=== PATIENT | male | born 1960 | race Caucasian/White ===

== ENCOUNTER 2016-12-21 19:21 | Inpatient (IN) | payer SELFPAY ==
--- NOTE | 2016-12-21 20:41 | ER Document Report ---
ED General - General Chief Complaint: Pain All Over Stated Complaint: STOMACH PAIN Time Seen by Provider: 12/21/16 20:31 Notes: Patient is a 56-year-old male comes emergency department for chief complaint of swelling in his abdomen and both of his legs, he states that it hurts all over, he states he tried to eat earlier but felt like it "was not going anywhere". He states that he gets short of breath intermittently. He denies chest pain specifically. He denies fever. He is on lisinopril, HCTZ, and Lasix 20 mg. He saw his primary care and they told him to come to emergency department today. Patient admits to former alcohol and tobacco abuse but states he has stopped both. He denies known history of liver failure. TRAVEL OUTSIDE OF THE [place] IN LAST 30 DAYS: No - Related Data Allergies/Adverse Reactions: No Known Allergies Allergy (Verified 12/21/16 19:49) Home Medications: Current Home Medications Furosemide [Lasix 40 mg Tablet] 40 mg PO 12/22/16 [History] Lisinopril/Hydrochlorothiazide [Lisinopril-Hctz 10-12.5 mg Tab] 1 each PO [History] Past Medical History - General Information source: Patient - Social History Smoking Status: Former Smoker Frequency of alcohol use: former heavy drinker Lives with: Family Family History: Reviewed & Not Pertinent - Past Medical History Cardiac Medical History: Reports: Hx Hypertension Renal/ Medical History: Denies: Hx Peritoneal Dialysis - Immunizations Hx Diphtheria, Pertussis, Tetanus Vaccination: Yes Review of Systems - Review of Systems Constitutional: No symptoms reported EENT: No symptoms reported Cardiovascular: See HPI Respiratory: No symptoms reported Gastrointestinal: See HPI Genitourinary: No symptoms reported Male Genitourinary: No symptoms reported Musculoskeletal: No symptoms reported Skin: No symptoms reported Hematologic/Lymphatic: No symptoms reported Neurological/Psychological: No symptoms reported Physical Exam - Vital signs Vitals: Temp Pulse Resp BP Pulse Ox 97.8 F 121 H 20 102/69 96 12/21/16 19:49 12/21/16 19:49 12/21/16 19:49 12/21/16 19:49 12/21/16 19:49 Interpretation: Normal - General General appearance: Other - patient slightly pale but not in distress In distress: None - HEENT Head: Normocephalic, Atraumatic Eyes: Normal Pupils: PERRL - Respiratory Respiratory status: No respiratory distress. No: Labored, Tachypnea Chest status: Nontender Breath sounds: Normal. No: Decreased air movement, Nonproductive cough, Wheezing Chest palpation: Normal - Cardiovascular Rhythm: Irregularly irregular, Tachycardia Murmur: No - Abdominal Distension: Distended Bowel sounds: Normal Tenderness: Tender - mild generalized tenderness - Back Back: Normal, Nontender. No: Tender - Extremities General upper extremity: Normal inspection, Nontender, Normal color, Normal ROM , Normal temperature General lower extremity: Edema - bilateral 2+ pitting edema; normal distal pulse and sensation - Neurological Neuro grossly intact: Yes Cognition: Normal Orientation: AAOx4 [place] Coma Scale Eye Opening: Spontaneous [place] Coma Scale Verbal: Oriented [place] Coma Scale Motor: Obeys Commands [place] Coma Scale Total: 15 Speech: Normal Cranial nerves: Normal Cerebellar coordination: Normal Motor strength normal: LUE, RUE, LLE, RLE Sensory: Normal - Psychological Associated symptoms: Normal affect, Normal mood - Skin Skin Temperature: Warm Skin Moisture: Dry Skin Color: Pale Course - Re-evaluation Re-evalutation: Patient is alert, he is not in distress, however he is slightly pale in appearance, he has obvious swelling of his abdomen and lower extremities suggestive of ascites. Tachycardic with irregular rate. EKG showing atrial fibrillation with rapid ventricular response at a rate of 145. Appears to have LBBB, no comparison old EKG. ST elevation anteriorly. Reviewed with Dr. Cason. Appears to be J-point elevation. Patient not complaining of chest pain. Workup pending. CBC is generally unremarkable. Chemistry shows mild hyponatremia, shows elevated BUN and elevated creatinine at 1.35. Cardiac enzymes unremarkable. LFTs are actually unremarkable. Patient has mild generalized abdominal tenderness but no severe tenderness suggesting spontaneous bacterial peritonitis. Suspect patient has liver failure with secondary ascites. Patient has history of alcohol abuse but denies drinking now, states he quit. Chest x-ray shows cardiomegaly, BNP is elevated, however there is no vascular congestion, there is no tachypnea, no rales on examination. Given Aspirin. Patient placed on Cardizem drip without bolus, this did work, heart rate averaging in the 100s now. Confirmed with Dr. Cason, he does not recommend a bolus of Cardizem. Patient states he actually feels a lot better now. Blood pressure borderline low and at times low, giving soft fluid resuscitation. Suspect he is intravascularly dry with elevated creatinine and BUN despite lower extremity edema and ascites. He states he is compliant with his Lasix. Ultrasound performed, shows ascites, enlarged liver, it does show gallbladder wall thickening but there is no pericholecystic fluid, stones, patient has no right upper quadrant pain on exam, chemistry not suggesting obstruction, no leukocytosis or fever. Patient denies that he has trouble eating or increased pain with eating. Examination does not suggest acute cholelithiasis. Discussed disposition with Dr. Cason again. Recommends admission to the hospitalist at this time. Discussed with Dr. Shelton, he states he will come and evaluate the patient, wants a repeat troponin and d-dimer performed. 12/22/16 D-dimer elevated, Dr. Shelton recommends evaluation for PE. CTA performed, shows no pulmonary embolism. Second troponin negative. Patient appeared to become cyanotic after lying down for a CAT scan, however he did not have labored breathing, hypoxia, or change in rhythm on monitoring. This resolved. Dr. Cason to bedside when this happened, recommends 500 cc bolus and 0.125 digoxin dose (now off cardizem due to low blood pressures). I did discuss with Dr. Shelton again, recommend ICU admission in the morning. Called and spoke with Dr. Johnson, patient to be admitted to the ICU. - Vital Signs Vital signs: Temp Pulse Resp BP Pulse Ox 97.8 F 121 H 21 H 102/90 H 96 12/21/16 19:49 12/21/16 19:49 12/22/16 07:01 12/22/16 07:00 12/22/16 07:01 - Laboratory Result Diagrams: 12/21/16 20:45 12/21/16 20:45 Laboratory results interpreted by me: 12/21/16 12/21/16 12/21/16 20:45 20:45 20:45 MCV 98 H RDW 15.6 H Plt Count 145 L PT D-Dimer Sodium 134.7 L Chloride 93 L BUN 41 H Creatinine 1.35 H Est GFR (Non-Af Amer) 55 L Magnesium Total Bilirubin 1.8 H Direct Bilirubin 0.8 H Creatine Kinase 44 L NT-Pro-B Natriuret Pep 45412 H TSH 12/21/16 12/21/16 12/21/16 20:45 20:45 20:45 MCV RDW Plt Count PT 15.7 H D-Dimer Sodium Chloride BUN Creatinine Est GFR (Non-Af Amer) Magnesium 2.5 H Total Bilirubin Direct Bilirubin Creatine Kinase NT-Pro-B Natriuret Pep TSH 4.88 H 12/22/16 01:55 MCV RDW Plt Count PT D-Dimer 1.74 H Sodium Chloride BUN Creatinine Est GFR (Non-Af Amer) Magnesium Total Bilirubin Direct Bilirubin Creatine Kinase NT-Pro-B Natriuret Pep TSH Critical Care Note - Critical Care Note Total time excluding time spent on procedures (mins): 50 - Hypotension, atrial fibrillation with rapid ventricular response Comments: Please allow 50 minutes of critical care time for treatment of patient with atrial fibrillation with rapid ventricular response, hypotension, multiple re- evaluations, treatment with Cardizem drip, IV fluids, digoxin. Consultation and admission to the ICU. Discharge - Discharge Clinical Impression: Atrial fibrillation with rapid ventricular response, Atrial fibrillation, new onset, History of alcohol abuse Ascites Qualifiers: Ascites type: other type Qualified Code(s): R18.8 - Other ascites Hypotension Qualifiers: Hypotension type: unspecified hypotension type Qualified Code(s): I95.9 - Hypotension, unspecified Condition: Serious Disposition: ADMITTED INPATIENT Admitting Provider: Hospitalist Unit Admitted: ICU Referrals: LIZBET HUFFMAN MD [Primary Care Provider] - Follow up as needed
[2016-12-21] MEDS ORDERED: DILTIAZEM HCL/D5W 125 MG/125 ML RTUINJ IV PRN (20:56)
[2016-12-21 21:05] LABS: ABSOLUTE BASOPHILS # (AUTO) 0.1 10^3/uL (0.0-0.2); ABSOLUTE EOSINOPHILS # (AUTO) 0.1 10^3/uL (0.0-0.6); ABSOLUTE LYMPHOCYTES (AUTO) 1.5 10^3/uL (0.5-4.7); ABSOLUTE MONOCYTES (AUTO) 0.7 10^3/uL (0.1-1.4); BASOPHILS % (AUTO) 0.9 % (0-2); EOSINOPHILS % (AUTO) 1.6 % (0-6); HEMATOCRIT 44.7 % (37.9-51.0); HEMOGLOBIN 14.7 g/dL (13.5-17.0); HGB HCT DIFFERENCE -0.6; LYMPHOCYTES % (AUTO) 20.8 % (13-45); MEAN CORPUSCULAR HEMOGLOBIN 32.3 pg (27.0-33.4); MEAN CORPUSCULAR HGB CONC 32.8 g/dL (32.0-36.0); MEAN CORPUSCULAR VOLUME 98 fl (80-97); MONOCYTES % (AUTO) 9.4 % (3-13); RED BLOOD COUNT 4.55 10^6/uL (4.35-5.55); RED CELL DISTRIBUTION WIDTH 15.6 % (11.5-14.0); SEGMENTED NEUTROPHILS % (AUTO) 67.3 % (42-78); WHITE BLOOD COUNT 7.4 10^3/uL (4.0-10.5)
[2016-12-21 21:08] LABS: ALANINE AMINOTRANSFERASE 53 U/L (21-72); ALBUMIN 3.7 g/dL (3.5-5.0); ALKALINE PHOSPHATASE 107 U/L (38-126); ANION GAP 14 (5-19); ASPARTATE AMINO TRANSFERASE 38 U/L (17-59); BILIRUBIN,DIRECT 0.8 mg/dL (0.0-0.4); BILIRUBIN,TOTAL 1.8 mg/dL (0.2-1.3); BLOOD UREA NITROGEN 41 mg/dL (7-20); CALCIUM 9.4 mg/dL (8.4-10.2); CARBON DIOXIDE 28 mmol/L (22-30); CHLORIDE 93 mmol/L (98-107); CREATINE KINASE 44 U/L (55-170); CREATININE RESULT 1.35 mg/dL (0.52-1.25); GLUCOSE 110 mg/dL (75-110); LIPASE 263.4 U/L (23-300); POTASSIUM 4.3 mmol/L (3.6-5.0); SODIUM 134.7 mmol/L (137-145); TOTAL PROTEIN 6.6 g/dL (6.3-8.2)
--- NOTE | 2016-12-21 21:09 | RADIOLOGY REPORT (SQ) ---
EXAM DESCRIPTION: CHEST SINGLE VIEW COMPLETED DATE/TIME: 12/21/2016 9:02 pm REASON FOR STUDY: shortness of breath COMPARISON: None. EXAM PARAMETERS: NUMBER OF VIEWS: One view. TECHNIQUE: Single frontal radiographic view of the chest acquired. RADIATION DOSE: NA LIMITATIONS: None. FINDINGS: LUNGS AND PLEURA: No opacities, masses or pneumothorax. No pleural effusion. MEDIASTINUM AND HILAR STRUCTURES: No masses. Contour normal. HEART AND VASCULAR STRUCTURES: Cardiomegaly. No failure. BONES: No acute findings. HARDWARE: None in the chest. OTHER: No other significant finding. IMPRESSION: Cardiomegaly. No other significant findings. TECHNICAL DOCUMENTATION: JOB ID: [id number]
[2016-12-21 21:19] LABS: PROTHROMBIN TIME 15.7 SEC (11.4-15.4)
[2016-12-21 21:20] LABS: CREATINE KINASE MB 0.41 ng/mL (<4.55); TROPONIN I 0.012 ng/mL
[2016-12-21] MEDS ORDERED: ASPIRIN 81 MG TABLET, CHEWABLE PO ONE (21:34)
[2016-12-21] MEDS ORDERED: NORMAL SALINE 1000 ML 500 ML IV ONE (21:36)
--- NOTE | 2016-12-22 00:10 | RADIOLOGY REPORT (SQ) ---
EXAM DESCRIPTION: U/S ABDOMEN COMPLETE W/O DOP COMPLETED DATE/TIME: 12/21/2016 11:52 pm REASON FOR STUDY: abd swelling and pain; eval liver and ascites COMPARISON: None. TECHNIQUE: Dynamic and static grayscale images acquired of the abdomen and recorded on PACS. Additio nal selected color Doppler and spectral images recorded. LIMITATIONS: Study limited due to acoustical interference from labored breathing, and fat or from ai r in the bowel. FINDINGS: PANCREAS: Poorly seen secondary to acoustical interference from fat or from air in the bow el. No visualized masses. Duct normal caliber as seen. LIVER: Enlarged measuring 22 cm in the right midclavicular line. Echotexture is within normal limits . LIVER VASCULATURE: Portal vein not able to be assessed due to labored breathing. GALLBLADDER: No stones. 7 mm wall thickness. ULTRASOUND-DETECTED KNUTSON'S SIGN: Negative. INTRAHEPATIC DUCTS AND COMMON DUCT: CBD and intrahepatic ducts normal caliber. No filling defects. INFERIOR VENA CAVA: Normal flow. AORTA: No aneurysm. RIGHT KIDNEY: Normal size. Normal echogenicity. No solid or suspicious masses. No hydronephrosis. No calcifications. LEFT KIDNEY: Normal size. Normal echogenicity. No solid or suspicious masses. No hydronephrosis. No calcifications. SPLEEN:Normal size. No solid masses. PERITONEAL AND PLEURAL SPACES: Moderate ascites is present in all 4 quadrants ascites. No pleural ef fusion identified. OTHER: No other significant finding. IMPRESSION: Hepatomegaly. Moderate ascites is present in all 4 quadrants ascites. Portal vein not able to be assessed due to labored breathing. Gallbladder wall thickening without intraluminal stones . TECHNICAL DOCUMENTATION: JOB ID: [id number] [employer]- All Rights Reserved
[2016-12-22] MEDS ORDERED: NORMAL SALINE 1000 ML 500 ML IV ONE ×2 (00:41→04:10)
[2016-12-22] MEDS ORDERED: NORMAL SALINE 1000 ML 1,000 ML IV ONE (02:52)
--- NOTE | 2016-12-22 03:40 | PDOC CONSULTATION ---
Consultation Consult Date: 12/22/16 Attending physician:: ALBERTO CONWAY Consult reason:: new onset atr fib; atr fib rvr; ascites History of Present Illness Admission Date/PCP: LIZBET HUFFMAN MD Patient complains of: abd/leg swelling, hurt all over History of Present Illness: ISAAC JOHNSON is a 56 year old male with history of alcohol abuse, averaging a case of beer per day, and a history of tobacco abuse, up to 2 packs a day, having stopped both approximately a month ago who presents to the emergency room for evaluation of above complaints. Patient has been discussed with emergency room nurse practitioner who evaluated the patient. Describes a 2 week history of slowly progressive abdominal and lower extremity swelling with hurting "all over." Early satiety. Intermittent shortness of breath. Occasional nausea and vomiting after eating, but not very often. No diarrhea or dysuria, chest pain, fever or chills. States he has never had leg or abdominal swelling before. Denies any known underlying biliary or cardiac disease, although he was started on lisinopril hydrochlorothiazide combination 1 month ago and started on Lasix 20 mg a day 1 week ago. Was seen in his primary care provider's office on the sixth, with above complaints, and was told to come to the emergency room for further evaluation and treatment. Was noted to be in atrial fibrillation with rapid ventricular response, pulse rate in the 140s upon arrival. Started on Cardizem drip, which is since been stopped. Right now in the 100 110+ range. Again, no chest pain. No history of atrial fibrillation, atrial flutter, or rapid irregular heartbeat. Basically negative personal history of cardiac disease other than the recently diagnosed hypertension. No previous [place] or congestive heart failure. No history of pulmonary embolus or DVT. No recent long trip with prolonged inactivity, or unusual lower extremity swelling or tenderness. No prior cardiac workup. Negative family history of coronary artery disease. Also noted to be intermittently hypotensive while in the emergency room, with systolic pressures down into the 70s at one point. Pressures have temporarily responded to IV fluids, with patient having received just under 1-1/2 L of crystalloid. However, when IV fluid is stopped, pressures creep down into the 80 systolic range. Dictation via voice recognition software. Laboratory results are listed in [employer] and are reviewed. X-ray summary results are listed below, with full report(s) reviewed. . EKG reviewed. No prior EKG available for comparison. Social history/personal habits: . Lives with girlfriend. Unemployed. One child. No illicit drug use. History of alcohol and tobacco use as noted above. No known drug allergies. Home medications initially autopopulated into [employer] may not accurately reflect patient's true medications, dosages, and/or frequencies. public health sanitarian technician to reconcile medications. Patient currently taking lisinopril hydrochlorothiazide combination 20/12.5 1 a day and Lasix 20 mg p.o. daily. Also on medication for hyperlipidemia; patient uncertain of this medication. REVIEW OF SYSTEMS: Constitutional: No fever or chills. Eyes: Wears reading glasses. ENT: No swallowing problems or complaints. Partial hearing loss. Pulmonary: See history and present illness. Cardiovascular: No current complaints, including chest pain. Gastrointestinal: See history and present illness. Skin: No current complaints, including rashes. Hematologic: Denies easy bruising. Neurologic: No current complaints, including numbness or tingling. Musculoskeletal: Joint pain from arthritis. Psychiatric: Denies anxiety or depression. Endocrine: No current complaints, including polyuria. Genitourinary: No current complaints, including dysuria. PHYSICAL EXAMINATION: 5 feet 5 inches tall. 94.4 kg. BMI 34.6 kg/m. Blood pressure 86/71; did increase to a systolic pressure 107 during IV fluid administration, but decreased back to the mid 80s systolic once the IV fluid was stopped. Pulse 106 and slightly irregular. 94% saturation on room air. Respirations are 21 and unlabored. Temperature 97.8. Slightly overweight somewhat disheveled chronically ill-appearing male who appears a bit older than his stated age. Pleasant awake alert and cooperative. Mildly anxious, without agitation. Skin is warm and dry. No grossly obvious evidence of rash in areas of skin examined. No subcutaneous nodules palpated. ENT: Hearing grossly normal to normal conversation. Tongue midline on protrusion pink and slightly tacky. Eyes: No scleral icterus. Pupils equal and reactive to light at 4 mm. [place] conjunctivae. Neck is supple and nontender to gentle active range of motion and palpation. Midline trachea. No palpable thyroid nodule mass enlargement or tenderness. Lymphatic: No palpable cervical or clavicular nodes. Neck and lymphatic exams limited by patient body habitus. Psychiatric: At best fair insight into acute and chronic medical issues. Oriented to time location and why here. Lungs: Auscultation reveals equal breath sounds bilaterally. No use of accessory respiratory muscles. Breath sounds are clear other than faint brief expiratory wheezing in the left base. Cardiovascular: Heart slightly irregular rate and rhythm, without gallop murmur or rub. No carotid or abdominal aortic bruits. Bilateral symmetric slightly pitting thigh, calf, ankle and pedal edema. Pitting component is most noticeable at ankles and dorsum of feet. Not sure I can palpate dorsalis pedis and posterior tibial pulses on either side due to edema, but toes are warm and dry with excellent capillary refill. Abdomen:soft rather protuberant with positive bowel sounds. Scant lower abdominal discomfort to palpation; certainly no evidence of guarding or peritoneal signs. Unable to adequately evaluate abdomen for masses or organomegaly due to distention. Extremities: Feet are warm and dry. No calf tenderness to compression. Gentle manipulation of lower extremities fails to reveal any obvious evidence of injury or instability to knees hips or ankles. Neurologic: Moves upper extremities grossly normally. Patellar reflexes absent. Absent Babinski. Light touch is intact at feet. Dorsiflexion and plantarflexion of feet 5 / 5 and symmetric. Past Medical History Cardiac Medical History: Reports: Hyperlipidema, Hypertension Denies: Atrial Fibrillation, Congestive Heart Failure, Coronary Artery Disease, DVT, Myocardial Infarction, Pulmonary Embolism Pulmonary Medical History: Denies: Asthma, Chronic Obstructive Pulmonary Disease (COPD), Sleep Apnea EENT Medical History: Reports: Eyes - Glasses, Ears - Partial hearing loss Denies: Throat Neurological Medical History: Denies: Hemorrhagic CVA, Ischemic CVA, Seizures Endocrine Medical History: Denies: Diabetes Mellitus Type 1, Diabetes Mellitus Type 2, Hyperthyroidism, Hypothyroidism Renal/ Medical History: Reports: None GI Medical History: Denies: Cirrhosis, Gastroesophageal Reflux Disease, Hepatitis, Peptic Ulcer Disease Musculoskeltal Medical History: Reports: Arthritis Skin Medical History: Reports: None Psychiatric Medical History: Reports: Other - History of alcohol and tobacco abuse; none for the past 1 month. Denies: Alcohol Dependency, Depression, General Anxiety Disorder, Substance Abuse, Tobacco Dependency Hematology: Reports: None Infectious Medical History: Denies: Hepatitis B, Hepatitis C Past Surgical History Past Surgical History: Reports: None Social History Information Source: Patient, Emergency Med Personnel, [facility] Records Lives with: Spouse/Significant other Smoking Status: Former Smoker - 2 packs a day at one time; none for the past month Frequency of Alcohol Use: None - History of heavy alcohol abuse; none for the past month Drugs: None - Advance Directive Resuscitation Status: Full Code Surrogate healthcare decision maker:: Girlfriend Family History Parental Family History Reviewed: Yes - Father of [place] at 86; uncertain mother's health Children Family History Reviewed: Yes - Healthy Sibling(s) Family History Reviewed.: Yes - Brother is diabetic Medication/Allergy Home Medications: Furosemide [Lasix 40 mg Tablet] 40 mg PO 12/22/16 Lisinopril/Hydrochlorothiazide [Lisinopril-Hctz 10-12.5 mg Tab] 1 each PO Allergies/Adverse Reactions: No Known Allergies Allergy (Verified 12/21/16 19:49) Physical Exam Vital Signs: Temp Pulse Resp BP Pulse Ox 97.8 F 121 H 17 100/85 95 12/21/16 19:49 12/21/16 19:49 12/22/16 02:12 12/22/16 02:02 12/22/16 02:02 Intake & Output 12/21/16 12/22/16 12/23/16 00:59 00:59 00:59 Weight 94.4 kg Results Laboratory Results: 12/21/16 20:45 12/21/16 20:45 12/21/16 12/21/16 12/21/16 20:45 20:45 20:45 WBC 7.4 RBC 4.55 Hgb 14.7 Hct 44.7 MCV 98 H MCH 32.3 MCHC 32.8 RDW 15.6 H Plt Count 145 L Seg Neutrophils % 67.3 Lymphocytes % 20.8 Monocytes % 9.4 Eosinophils % 1.6 Basophils % 0.9 Absolute Neutrophils 5.0 Absolute Lymphocytes 1.5 Absolute Monocytes 0.7 Absolute Eosinophils 0.1 Absolute Basophils 0.1 Sodium 134.7 L Potassium 4.3 Chloride 93 L Carbon Dioxide 28 Anion Gap 14 BUN 41 H Creatinine 1.35 H Est GFR ( Amer) > 60 Est GFR (Non-Af Amer) 55 L Glucose 110 Calcium 9.4 Magnesium 2.5 H Total Bilirubin 1.8 H AST 38 ALT 53 Alkaline Phosphatase 107 Total Protein 6.6 Albumin 3.7 Lipase 263.4 TSH 12/21/16 20:45 WBC RBC Hgb Hct MCV MCH MCHC RDW Plt Count Seg Neutrophils % Lymphocytes % Monocytes % Eosinophils % Basophils % Absolute Neutrophils Absolute Lymphocytes Absolute Monocytes Absolute Eosinophils Absolute Basophils Sodium Potassium Chloride Carbon Dioxide Anion Gap BUN Creatinine Est GFR ( Amer) Est GFR (Non-Af Amer) Glucose Calcium Magnesium Total Bilirubin AST ALT Alkaline Phosphatase Total Protein Albumin Lipase TSH 4.88 H 12/21/16 12/21/16 12/22/16 20:45 20:45 01:55 Creatine Kinase 44 L CK-MB (CK-2) 0.41 Troponin I 0.012 < 0.012 NT-Pro-B Natriuret Pep [id number] H Impressions: Chest X-Ray 12/21/16 20:38 IMPRESSION: Cardiomegaly. No other significant findings. Abdomen Ultrasound 12/21/16 21:54 IMPRESSION: Hepatomegaly. Moderate ascites is present in all 4 quadrants ascites. Portal vein not able to be assessed due to labored breathing. Gallbladder wall thickening without intraluminal stones. Assessment & Plan - Diagnosis (1) Renal insufficiency Is this a current diagnosis for this admission?: Yes Plan: Mild. Uncertain chronicity; no old labs available for comparison. (2) Thrombocytopenia Is this a current diagnosis for this admission?: Yes Plan: Mild. Likely secondary to liver disease from long-term alcohol abuse. (3) Hypotension Qualifiers: Hypotension type: unspecified hypotension type Qualified Code(s): I95.9 - Hypotension, unspecified Is this a current diagnosis for this admission?: Yes Plan: Possibly secondary to an element of intravascular depletion, despite peripheral edema. Ventricular rate acceptable at this point, with patient off Cardizem drip for approximately 45 minutes. Suggest further IV fluid at this point. May eventually need vasopressor; will leave to discretion of ER staff. This would necessitate ICU admission at our facility, and unfortunately, at this point in time, we have no ICU beds available. Consider transfer to facility with appropriate bed. Above discussed with emergency room nurse practitioner who originally evaluated the patient. (4) History of tobacco abuse Is this a current diagnosis for this admission?: Yes (5) History of alcohol abuse Is this a current diagnosis for this admission?: Yes (6) Peripheral edema Is this a current diagnosis for this admission?: Yes Plan: Likely secondary to underlying liver disease. (7) HTN (hypertension) Qualifiers: Hypertension type: essential hypertension Qualified Code(s): I10 - Essential (primary) hypertension Is this a current diagnosis for this admission?: Yes Plan: With low blood pressures, obviously recommend holding antihypertensives at this point in time. (8) Elevated LFTs Is this a current diagnosis for this admission?: Yes Plan: Likely secondary to underlying liver disease. (9) Ascites Qualifiers: Ascites type: other type Qualified Code(s): R18.8 - Other ascites Is this a current diagnosis for this admission?: Yes Plan: Likely secondary to underlying liver disease. Probably would benefit, at least symptomatically, from paracentesis. Not available at this time of day. Fluid could obviously be sent for further studies, including Gram stain, culture and sensitivity. No outward clinical evidence of spontaneous bacterial peritonitis at this point in time. (10) Atrial fibrillation, new onset Is this a current diagnosis for this admission?: Yes Plan: Elevated d-dimer. Plans by nurse practitioner are to proceed with CT angiogram of chest to rule out pulmonary embolus. Will eventually need cardiac workup, including echocardiogram. (11) Atrial fibrillation with rapid ventricular response Is this a current diagnosis for this admission?: Yes Plan: Acceptable ventricular rate off Cardizem drip. - Time Time Spent: 50 to 70 Minutes - Plan Summary Plan Summary: Thank you for asking us to see this unfortunate patient. Should vital signs stabilize, and/or intensive care unit bed become available at our facility, we would be happy to take patient on our service. Above discussed with initial evaluating emergency room nurse practitioner.
[2016-12-22] MEDS ORDERED: DIGOXIN INJ 0.5 MG/2 ML AMPULE IV ONE ×3 (04:09→22:00)
[2016-12-22] MEDS ORDERED: DIGOXIN INJ 0.5 MG/2 ML AMPULE ONE (04:14)
--- NOTE | 2016-12-22 04:20 | RADIOLOGY REPORT (SQ) ---
EXAM DESCRIPTION: CTA CHEST COMPLETED DATE/TIME: 12/22/2016 4:04 am REASON FOR STUDY: elevated D-Dimer(1.74) COMPARISON: Chest x-ray 12/21/2016. TECHNIQUE: CT scan of the chest performed using helical scanning technique with dynamic intravenous contrast injection. Images reviewed with lung, soft tissue and bone windows. Reconstructed coronal and sagittal MPR images reviewed. Additional 3 dimensional post-processing performed to develop Maximal Intensity Projection images (TX P). All images stored on PACS. All CT scanners at this facility use dose modulation, iterative reconstruction, and/or weight based d osing when appropriate to reduce radiation dose to as low as reasonably achievable (ALARA). [facility]: Dose Right [facility]: CareDose [facility]: Dose Right [facility]: Teradose 4D [facility]: j-Grab CONTRAST TYPE AND DOSE: contrast/concentration: Isovue 370.00 mg/ml; Total Contrast Delivered: 100.0 ml; Total Saline Delivered: 65.0 ml Contrast bolus optimized for the pulmonary arteries. Not diagnostic for the aorta. RENAL FUNCTION: Creatinine 1.35 RADIATION DOSE: Up-to-date CT equipment and radiation dose reduction techniques were employed. CTDIv ol: 18.6 mGy. DLP: 642 mGy-cm. . LIMITATIONS: Motion artifact. FINDINGS: LUNGS AND PLEURA: There is a small right-sided pleural effusion. Atelectatic changes at t he bilateral lung bases. No pneumothorax. There are mild emphysematous changes in the upper lobes. AORTA AND GREAT VESSELS: No thoracic aortic aneurysm. Contrast bolus not optimized for the aorta. HEART: The heart is enlarged. No pericardial effusion. Coronary arteries calcifications are noted. PULMONARY ARTERIES: No emboli visualized in the main pulmonary arteries or the segmental branches. HILAR AND MEDIASTINAL STRUCTURES: Right paratracheal lymph node measuring 13 mm in short axis. HARDWARE: None in the chest. UPPER ABDOMEN: There is a small amount of ascites in the visualized upper abdomen. There is reflux o f intravenous contrast into the IVC and the hepatic veins. BONES: Mild multilevel degenerative changes in the spine. 3D MIPS: Confirm above findings. IMPRESSION: No pulmonary emboli. Cardiomegaly. Reflux of intravenous contrast into the IVC and the hepatic veins, may be seen with ri ght heart failure. Small right pleural effusion. Bibasilar atelectasis. Mild mediastinal adenopathy. Mild emphysema. Small ascites. COMMENT: Quality ID # [id number]: Final reports with documentation of one or more dose reduction techniques (e.g., Automated exposure control, adjustment of the mA and/or kV according to patient size, use of iterative reconstruction technique) TECHNICAL DOCUMENTATION: JOB ID: [id number] [employer]- All Rights Reserved
--- NOTE | 2016-12-22 07:53 | EKG REPORT ---
SEVERITY:- ABNORMAL ECG - ATRIAL FIBRILLATION, V-RATE [id number] NONSPECIFIC INTRAVENTRICULAR CONDUCTION DELAY ANTERIOR INFARCT, AGE INDETERMINATE : Confirmed by: José Miguel Craig MD 22-Dec-2016 07:52:39
--- NOTE | 2016-12-22 07:53 | EKG REPORT ---
SEVERITY:- ABNORMAL ECG - ATRIAL FIBRILLATION NONSPECIFIC INTRAVENTRICULAR CONDUCTION DELAY ANTERIOR INFARCT, AGE INDETERMINATE : Confirmed by: José Miguel Craig MD 22-Dec-2016 07:52:28
[2016-12-22 08:41] LABS: ANION GAP 11 (5-19); BLOOD UREA NITROGEN 41 mg/dL (7-20); CALCIUM 9.1 mg/dL (8.4-10.2); CARBON DIOXIDE 24 mmol/L (22-30); CHLORIDE 98 mmol/L (98-107); CREATINE KINASE 41 U/L (55-170); CREATININE RESULT 1.25 mg/dL (0.52-1.25); GLUCOSE 91 mg/dL (75-110); POTASSIUM 4.9 mmol/L (3.6-5.0); SODIUM 133.3 mmol/L (137-145)
[2016-12-22 08:55] LABS: CREATINE KINASE MB 0.88 ng/mL (<4.55)
[2016-12-22 08:57] LABS: TROPONIN I < 0.012 ng/mL
--- NOTE | 2016-12-22 09:21 | ER Document Report ---
Doctor's Note Notes: 12/22/16 09:19 EKG obtained at 755 shows heart rate of 122 with atrial fibrillation and a prolonged QT time. QTC of 582. Repeat troponin and metabolic panel were ordered. Troponin continues to be negative. Metabolic panel is reasonable. Patient was seen last night with a consult by internal medicine with the plan to admit once an ICU bed was available. On reexamination at 855, the patient appeared well, felt comfortable. He said he was feeling better. His heart rate was 105. He was upright and wishing to go to the bathroom. No acute distress. I called earlier and spoke with Dr. Johnson. He has referred me to Dr. mcqueen. Dr. mcqueen and I have spoken and she will see the patient in the emergency department with the intention to admit him to the hospital. We agree that he likely does not need an ICU bed at this time, given his overall well appearance.
[2016-12-22] MEDS ORDERED: ONDANSETRON HCL INJ/PF 4 MG/2 ML SDV IV PRN ×2 (09:30→14:30)
[2016-12-22] MEDS ORDERED: METOPROLOL TARTRATE 25 MG TABLET PO SCH ×3 (10:00→18:00)
[2016-12-22] MEDS ORDERED: ALBUMIN HUMAN 50 ML IV SCH (12:00)
[2016-12-22] MEDS ORDERED: MIDODRINE HCL 5 MG TABLET PO SCH (14:00)
[2016-12-22] MEDS ORDERED: DILTIAZEM HCL INJ 25 MG/5 ML VIAL IV ONE (14:10)
[2016-12-22] MEDS: MIDODRINE HCL 5 MG TABLET PO SCH (17:30)
[2016-12-22] MEDS: ALBUMIN HUMAN 50 ML IV SCH ×4 (17:31→23:46)
[2016-12-22] MEDS ORDERED: METOPROLOL TARTRATE 25 MG TABLET PO ONE (19:30)
--- NOTE | 2016-12-22 20:43 | PDOC CONSULTATION ---
Consultation Consult Date: 12/22/16 Attending physician:: JESSE CHASE Consult reason:: Hypotension, atrial fibrillation History of Present Illness Admission Date/PCP: 12/22/16 09:30 LIZBET HUFFMAN MD Patient complains of: Leg edema. History of Present Illness: ISAAC JOHNSON is a 56 year old male with history of alcohol abuse, averaging a case of beer per day, and a history of tobacco abuse, up to 2 packs a day, having stopped both approximately a month ago who presents to the emergency room for evaluation of above complaints. Patient has been discussed with emergency room nurse practitioner who evaluated the patient. Describes a 2 week history of slowly progressive abdominal and lower extremity swelling with hurting "all over." Early satiety. Intermittent shortness of breath. Occasional nausea and vomiting after eating, but not very often. No diarrhea or dysuria, chest pain, fever or chills. States he has never had leg or abdominal swelling before. Denies any known underlying biliary or cardiac disease, although he was started on lisinopril hydrochlorothiazide combination 1 month ago and started on Lasix 20 mg a day 1 week ago. Was seen in his primary care provider's office on the sixth, with above complaints, and was told to come to the emergency room for further evaluation and treatment. Was noted to be in atrial fibrillation with rapid ventricular response, pulse rate in the 140s upon arrival. Started on Cardizem drip, which is since been stopped. Right now in the 100 110+ range. Again, no chest pain. Patient claims he has never been hospitalized. He denied ever having any heart problems. No history of atrial fibrillation, atrial flutter, or rapid irregular heartbeat. Basically negative personal history of cardiac disease other than the recently diagnosed hypertension. No previous DC or congestive heart failure. No history of pulmonary embolus or DVT. No recent long trip with prolonged inactivity, or unusual lower extremity swelling or tenderness. Also noted to be intermittently hypotensive while in the emergency room, with systolic pressures down into the 70s at one point. Pressures have temporarily responded to IV fluids, with patient having received just under 1-1/2 L of crystalloid. However, when IV fluid is stopped, pressures creep down into the 80 systolic range. Patient is a poor historian. This history was confirmed. Patient on repeated questioning denied any chest pain. He denied any prior history of atrial fibrillation, congestive heart failure etc. Past Medical History Cardiac Medical History: Reports: Hyperlipidema, Hypertension Denies: Atrial Fibrillation, Congestive Heart Failure, Coronary Artery Disease, DVT, Myocardial Infarction, Pulmonary Embolism Pulmonary Medical History: Denies: Asthma, Chronic Obstructive Pulmonary Disease (COPD) EENT Medical History: Reports: Eyes - Glasses, Ears - Partial hearing loss Denies: Throat Neurological Medical History: Denies: Hemorrhagic CVA, Ischemic CVA, Seizures Endocrine Medical History: Denies: Diabetes Mellitus Type 1, Diabetes Mellitus Type 2, Hyperthyroidism, Hypothyroidism Renal/ Medical History: Reports: None GI Medical History: Denies: Cirrhosis, Gastroesophageal Reflux Disease, Hepatitis, Peptic Ulcer Disease Musculoskeltal Medical History: Reports: Arthritis Skin Medical History: Reports: None Psychiatric Medical History: Reports: Other - History of alcohol and tobacco abuse; none for the past 1 month. Denies: Alcohol Dependency, Depression, General Anxiety Disorder, Substance Abuse, Tobacco Dependency Hematology: Reports: None Infectious Medical History: Denies: Hepatitis B, Hepatitis C Past Surgical History Past Surgical History: Reports: None Social History Information Source: Patient Lives with: Family Smoking Status: Former Smoker Frequency of Alcohol Use: Heavy Drugs: None Hx Prescription Drug Abuse: No - Advance Directive Resuscitation Status: Full Code Surrogate healthcare decision maker:: Patient's mother is the surrogate decision-maker Family History Family History: Reviewed & Not Pertinent Parental Family History Reviewed: Yes Children Family History Reviewed: Yes Sibling(s) Family History Reviewed.: Yes Medication/Allergy Home Medications: Furosemide [Lasix 20 mg Tablet] 20 mg PO QAM 12/22/16 Lisinopril/Hydrochlorothiazide [Lisinopril-Hctz 20-12.5 mg Tab] 1 tab PO DAILY 12/22/16 Allergies/Adverse Reactions: No Known Allergies Allergy (Verified 12/21/16 19:49) Review of Systems Review of Systems: Please see history of present illness and past medical history as wall. Constitutional: No fever or chills reported. Head : No recent chronic headaches, recent head injury. Eyes: No recent eye pain, diplopia, redness, discharge, acute visual changes. Ears: No recent chronic ear pain, acute hearing loss, ear discharge. Oral cavity: No recent ulcerations, bleeding, oral cavity discomfort. Neck: No recent acute neck pain reported. Hematologic: No recent easy bruising or bleeding or hematologic malignancy reported. Lymphatic: No recent lymphatic malignancy, chronic lymphadenopathy reported yet Cardiovascular system review: See history of present illness. Respiratory system review: No recent chronic cough, hemoptysis, blood clots in the lungs reported. Mild Shortness of breath on exertion Gastrointestinal system review: Negative for any recent acute or chronic abdominal pain, hematemesis, melena, recent change in bowel habits. Patient has noted some progressive abdominal distention. Genitourinary system review: No recent acute or chronic hematuria, flank pain, UTI etc. reported. Skin system review: Negative for any recent abnormal bruising, no rash, no pruritus reported. Neurologic: No prior history of strokes, mini strokes, seizure disorder. Psychologic: No history of major psychosis or major depression reported. Musculoskeletal: Minor aches and pains reported. No acute joint swelling reported. Endocrine: No recent polyuria, polydipsia, recent heat or cold intolerance. Physical Exam Vital Signs: Temp Pulse Resp BP Pulse Ox 97.4 F 110 H 20 80/54 L 99 12/22/16 16:35 12/22/16 19:10 12/22/16 16:35 12/22/16 19:10 12/22/16 16:35 Intake & Output 12/21/16 12/22/16 12/23/16 06:59 06:59 06:59 Intake Total 240 Balance 240 Exam: GENERAL: well-nourished and in no acute distress. Alert and oriented x3. He is however noted to be sitting upright in bed. HEAD: Atraumatic, normocephalic. EYES: Pupils equal round and reactive to light, extraocular movements intact, sclera anicteric, conjunctiva are normal. ENT: TMs normal, nares patent, oropharynx clear without exudates. Moist mucous membranes. No oral ulcerations or bleeding gums noted NECK: supple without lymphadenopathy. Trachea is central. No cervical or axillary lymphadenopathy noted. Carotids are 2+, JVD could not assess adequately but possibly significantly elevated and above angle of jaw. LUNGS: Respiration seems nonlabored, no significant accessory muscle action noted. Bibasilar fine crackles are noted. No significant dullness appreciated CHEST: Palpation of the chest wall shows no significant chest wall tenderness. No other significant abnormalities noted. HEART: [employer], No PSH, 1/6 TISH aortic area, 1/6 ga systolic murmur mitral area, no rubs, positive S3 gallops. ABDOMEN: Soft, no significant tenderness appreciated, normoactive bowel sounds. No guarding, no rebound. No rigidity noted . No masses appreciated. EXTREMITIES: Pedal pulses are 1-2+, no calf tenderness noted. No clubbing or cyanosis.2+ pedal edema noted NEUROLOGICAL: Focused neurological exam showed no significant neurologic deficit. Normal speech, no focal weakness appreciated. PSYCH: Normal mood, normal affect. Judgment and insight not checked but probably somewhat deranged. SKIN: No significant ecchymosis, rash, ulcerations or signs of pruritus noted. MUSCULOSKELETAL EXAM: No significant joint swelling noted. Results EKG Comments: Atrial fibrillation with rapid ventricular response. Left bundle branch block pattern noted. Impressions: Chest X-Ray 12/21/16 20:38 IMPRESSION: Cardiomegaly. No other significant findings. Abdomen Ultrasound 12/21/16 21:54 IMPRESSION: Hepatomegaly. Moderate ascites is present in all 4 quadrants ascites. Portal vein not able to be assessed due to labored breathing. Gallbladder wall thickening without intraluminal stones. Chest/Abdomen CTA 12/22/16 02:51 IMPRESSION: No pulmonary emboli. Cardiomegaly. Reflux of intravenous contrast into the IVC and the hepatic veins , may be seen with right heart failure. Small right pleural effusion. Bibasilar atelectasis. Mild mediastinal adenopathy. Mild emphysema. Small ascites. Assessment & Plan - Diagnosis (1) Congestive heart failure Qualifiers: Congestive heart failure type: combined Congestive heart failure chronicity : acute on chronic Qualified Code(s): I50.43 - Acute on chronic combined systolic (congestive) and diastolic (congestive) heart failure Is this a current diagnosis for this admission?: Yes (2) Coronary artery disease Qualifiers: Coronary Disease-Associated Artery/Lesion type: lummi artery Associated angina: angina presence unspecified Is this a current diagnosis for this admission?: Yes (3) Atrial fibrillation with rapid ventricular response Is this a current diagnosis for this admission?: Yes (4) Elevated LFTs Is this a current diagnosis for this admission?: Yes (5) HTN (hypertension) Qualifiers: Hypertension type: essential hypertension Qualified Code(s): I10 - Essential (primary) hypertension Is this a current diagnosis for this admission?: Yes (6) Hypotension Qualifiers: Hypotension type: unspecified hypotension type Qualified Code(s): I95.9 - Hypotension, unspecified Is this a current diagnosis for this admission?: Yes (7) Peripheral edema Is this a current diagnosis for this admission?: Yes (8) Renal insufficiency Is this a current diagnosis for this admission?: Yes (9) History of alcohol abuse Is this a current diagnosis for this admission?: Yes (10) Cardiomyopathy Qualifiers: Cardiomyopathy type: unspecified Qualified Code(s): I42.9 - Cardiomyopathy , unspecified Is this a current diagnosis for this admission?: Yes - Notes Notes: Patient noted to have severely reduced LVEF in addition has moderate to severe mitral regurgitation and also RV systolic dysfunction and failure. Picture consistent with biventricular cardiomyopathy. I feel that given his young age and current hypotension, best option would be to transfer to tertiary care as patient is likely to need LV pump support. This was discussed in detail with the patient back patient is declining transfer to tertiary care or even to the unit. At this point will digitalize patient as this is the only option left. Do not feel cardioversion likely to help at this time as it is chronic. If blood pressure support is needed, vasopressin may be the best option, as another agent is more likely to increase his heart rate response from atrial fibrillation. Overall prognosis is guarded. Discussed with hospitalist. Congestive heart failure: Patient seems to have severely depressed LVEF based on echocardiogram review. At this point blood pressure is low. CHF most likely related to underlying dilated cardiomyopathy but since patient has coronary calcification, patient could have had prior myocardial infarction. Will gradually optimized therapy as allowed by the blood pressure. Cardiomyopathy: 2D echocardiogram suggest biventricular cardiomyopathy, etiology not clear but probably idiopathic/alcoholic/ischemic. Coronary artery disease: This is present since patient has coronary calcification. Atrial fibrillation: Probably chronic based on left atrial enlargement. Patient also does not feel palpitations therefore difficult to assess how long has this been going on. Elevated LFT: Most likely related to CHF but cannot rule out alcoholic hepatitis. Hypertension: Patient however currently hypotensive. Peripheral edema: Possibly related to CHF but could well be risk partly from venous insufficiency, low albumin etc. Renal insufficiency: Most likely related to atherosclerotic disease. Could be related to low perfusion. History of alcohol abuse: Stable. Watch for any withdrawal. - Time Time Spent: 50 to 70 Minutes - CODE STATUS was discussed, patient remains full code. Surrogate decision-maker unchanged. Multiple medical problems were addressed. More than 50% of the time spent coordinating care, discussing management plans with involved caregivers. Management plans discussed with involved personnels. Medical decision making was of moderate to high complexity , patient's has multiple comorbidities. Medications reviewed and adjusted accordingly: Yes
[2016-12-22] MEDS: FUROSEMIDE INJ/PF 40 MG/4 ML SDV IV SCH (21:05)
[2016-12-22 21:19] LABS: ABSOLUTE BASOPHILS # (AUTO) 0.1 10^3/uL (0.0-0.2); ABSOLUTE EOSINOPHILS # (AUTO) 0.1 10^3/uL (0.0-0.6); ABSOLUTE LYMPHOCYTES (AUTO) 1.6 10^3/uL (0.5-4.7); ABSOLUTE MONOCYTES (AUTO) 0.6 10^3/uL (0.1-1.4); ABSOLUTE NEUT (AUTO) 5.2 10^3/uL (1.7-8.2); BASOPHILS % (AUTO) 1.1 % (0-2); EOSINOPHILS % (AUTO) 1.5 % (0-6); HEMATOCRIT 41.3 % (37.9-51.0); HEMOGLOBIN 13.8 g/dL (13.5-17.0); HGB HCT DIFFERENCE 0.1; LYMPHOCYTES % (AUTO) 20.6 % (13-45); MEAN CORPUSCULAR HEMOGLOBIN 32.8 pg (27.0-33.4); MEAN CORPUSCULAR HGB CONC 33.5 g/dL (32.0-36.0); MEAN CORPUSCULAR VOLUME 98 fl (80-97); MONOCYTES % (AUTO) 8.3 % (3-13); RED BLOOD COUNT 4.21 10^6/uL (4.35-5.55); RED CELL DISTRIBUTION WIDTH 15.3 % (11.5-14.0); SEGMENTED NEUTROPHILS % (AUTO) 68.5 % (42-78); WHITE BLOOD COUNT 7.6 10^3/uL (4.0-10.5)
[2016-12-22 21:41] LABS: ALANINE AMINOTRANSFERASE 41 U/L (21-72); ALBUMIN 3.7 g/dL (3.5-5.0); ALKALINE PHOSPHATASE 103 U/L (38-126); ANION GAP 15 (5-19); ASPARTATE AMINO TRANSFERASE 31 U/L (17-59); BILIRUBIN,TOTAL 2.1 mg/dL (0.2-1.3); BLOOD UREA NITROGEN 43 mg/dL (7-20); CALCIUM 8.9 mg/dL (8.4-10.2); CARBON DIOXIDE 20 mmol/L (22-30); CHLORIDE 96 mmol/L (98-107); CREATININE RESULT 1.23 mg/dL (0.52-1.25); GLUCOSE 107 mg/dL (75-110); MAGNESIUM 2.4 mg/dL (1.6-2.3); POTASSIUM 4.8 mmol/L (3.6-5.0); SODIUM 130.6 mmol/L (137-145); TOTAL PROTEIN 6.2 g/dL (6.3-8.2)
[2016-12-22 21:52] LABS: FREE T3 3.35 pg/mL (2.77-5.27)
[2016-12-22] MEDS ORDERED: FUROSEMIDE INJ/PF 40 MG/4 ML SDV IV SCH (22:00)
[2016-12-22] MEDS ORDERED: ALBUMIN HUMAN 50 ML IV ONE (23:46)
[2016-12-23] MEDS ORDERED: METOPROLOL TARTRATE 25 MG TABLET PO SCH
[2016-12-23] MEDS: METOPROLOL TARTRATE 25 MG TABLET PO SCH ×4 (00:50→18:10)
[2016-12-23] MEDS ORDERED: THIAMINE HCL 100 MG TABLET PO ONE (01:00)
[2016-12-23 04:56] LABS: ABSOLUTE BASOPHILS # (AUTO) 0.1 10^3/uL (0.0-0.2); ABSOLUTE EOSINOPHILS # (AUTO) 0.1 10^3/uL (0.0-0.6); ABSOLUTE LYMPHOCYTES (AUTO) 1.2 10^3/uL (0.5-4.7); ABSOLUTE MONOCYTES (AUTO) 0.6 10^3/uL (0.1-1.4); ABSOLUTE NEUT (AUTO) 5.1 10^3/uL (1.7-8.2); BASOPHILS % (AUTO) 1.2 % (0-2); EOSINOPHILS % (AUTO) 1.4 % (0-6); HEMATOCRIT 40.8 % (37.9-51.0); HEMOGLOBIN 13.6 g/dL (13.5-17.0); LYMPHOCYTES % (AUTO) 16.4 % (13-45); MEAN CORPUSCULAR HEMOGLOBIN 32.6 pg (27.0-33.4); MEAN CORPUSCULAR HGB CONC 33.2 g/dL (32.0-36.0); MEAN CORPUSCULAR VOLUME 98 fl (80-97); MONOCYTES % (AUTO) 8.6 % (3-13); RED BLOOD COUNT 4.16 10^6/uL (4.35-5.55); RED CELL DISTRIBUTION WIDTH 15.6 % (11.5-14.0); SEGMENTED NEUTROPHILS % (AUTO) 72.4 % (42-78); WHITE BLOOD COUNT 7.1 10^3/uL (4.0-10.5)
[2016-12-23 05:12] LABS: ALANINE AMINOTRANSFERASE 36 U/L (21-72); ALBUMIN 3.7 g/dL (3.5-5.0); ALKALINE PHOSPHATASE 105 U/L (38-126); ANION GAP 13 (5-19); ASPARTATE AMINO TRANSFERASE 32 U/L (17-59); BILIRUBIN,DIRECT 1.1 mg/dL (0.0-0.4); BILIRUBIN,TOTAL 2.5 mg/dL (0.2-1.3); BLOOD UREA NITROGEN 42 mg/dL (7-20); CALCIUM 9.3 mg/dL (8.4-10.2); CARBON DIOXIDE 21 mmol/L (22-30); CHLORIDE 98 mmol/L (98-107); CHOLESTEROL 97.96 mg/dL (0-200); CREATININE RESULT 1.09 mg/dL (0.52-1.25); Direct HDL 19 mg/dL (>40); GLUCOSE 93 mg/dL (75-110); MAGNESIUM 2.4 mg/dL (1.6-2.3); PHOSPHORUS 3.9 mg/dL (2.5-4.5); POTASSIUM 4.4 mmol/L (3.6-5.0); SODIUM 131.6 mmol/L (137-145); TOTAL PROTEIN 6.2 g/dL (6.3-8.2); TRIGLYCERIDES 81 mg/dL (<150)
[2016-12-23 05:23] LABS: DIRECT LDL 68 mg/dL (<100)
[2016-12-23] MEDS: MIDODRINE HCL 5 MG TABLET PO SCH ×3 (05:58→18:09)
[2016-12-23] MEDS: LANSOPRAZOLE 30 MG TAB.RAP.DR PO SCH (05:58)
[2016-12-23] MEDS ORDERED: FUROSEMIDE INJ/PF 40 MG/4 ML SDV IV SCH ×3 (10:00)
[2016-12-23] MEDS ORDERED: SPIRONOLACTONE 25 MG TABLET PO SCH (10:00)
[2016-12-23] MEDS: FOLIC ACID 1 MG TABLET PO SCH (11:03)
[2016-12-23] MEDS: RANOLAZINE 500 MG TAB.SR.12H PO SCH ×2 (11:03→21:40)
[2016-12-23] MEDS: MULTIVITAMIN TABLET PO SCH (11:05)
[2016-12-23] MEDS: DIGOXIN 0.125 MG TABLET PO SCH (11:07)
[2016-12-23] MEDS: THIAMINE HCL 100 MG TABLET PO SCH (11:08)
[2016-12-23] MEDS: SPIRONOLACTONE 25 MG TABLET PO SCH (11:12)
--- NOTE | 2016-12-23 11:17 | RADIOLOGY REPORT (SQ) ---
EXAM DESCRIPTION: U/S ABD PARACENTESIS COMPLETED DATE/TIME: 12/23/2016 10:13 am REASON FOR STUDY: ascities with abdominal distenstion and discomfort COMPARISON CT chest 12/22/2016 Abdominal ultrasound 12/21/2016 LIMITATIONS: None. PROCEDURE: After obtaining informed consent, the patient was brought to the ultrasound suite. The p rocedure was performed with the patient on a gurney. Ultrasound was used to identify a prominent poc ket of ascites in the right lower quadrant. An appropriate access site was selected. The patient wa s prepped and draped in usual sterile fashion. The access site was anesthetized with 4.5 mL 1% lido higinio. A Ihjo-X-Ndadhgib needle was advanced into the fluid. After aspiration of fluid the needle, the catheter was advanced off the needle into the fluid. A total of 1,600 mL of clear straw-colored fluid was removed. The patient tolerated the procedure well left the department in satisfactory condi tion. Samples of fluid were sent to the lab for testing. IMPRESSION: Successful ultrasound-guided diagnostic and therapeutic paracentesis COMMENT: Patient medication list reviewed: Yes- Quality ID# [id number]:Eligible professional attests to doc umenting in the medical record they obtained, updated, or reviewed the patient's current medications. Quality ID #[id number]: The patient was prepped and draped using maximum sterile barrier technique including cap, mask, sterile gown, sterile gloves, a large sterile sheet, hand hygiene, and 2% Chlorhexidine fo r cutaneous antisepsis. When ultrasound is used, sterile ultrasound techniques are followed requiring sterile gel and sterile probes. Quality ID #[id number]: Final reports for procedures using fluoroscopy that document radiation exposure chetna danya, or exposure time and number of fluorographic images (if radiation exposure indices are not avail able) TECHNICAL DOCUMENTATION: JOB ID: [id number] [employer]- All Rights Reserved
[2016-12-23 11:48] LABS: FLUID TYPE PERITONEAL
[2016-12-23 11:49] LABS: FLUID APPEARANCE SLIGHTLY HAZY; FLUID RBC AVERAGE 191.5; FLUID RBC DILUENT USED NONE USED; FLUID RBC DILUTION FACTOR 1; FLUID RBC SIDE 1 190; FLUID RBC SIDE 2 193; TOTAL RBC SQUARES COUNTED FLD 50
[2016-12-23] MEDS: FUROSEMIDE INJ/PF 40 MG/4 ML SDV IV SCH ×2 (13:14→19:36)
[2016-12-23] MEDS ORDERED: HYDRALAZINE HCL INJ/PF 20 MG/1 ML SDV IV PRN (19:19)
--- NOTE | 2016-12-23 19:19 | PDOC PROGRESS REPORT ---
Subjective Progress Note for:: 12/23/16 Subjective:: This is a follow-up visit for anasarca and underlying congestive heart failure. Had a long conversation with the patient who states that under no circumstances does he want to be transferred to a higher center for management of his disease. He states that he feels that we can treat him here and that if he really needs to go to [facility] that he will get in the car and drive himself. I was very specific with him and what I have learned is that the patient will only agree to be transferred to a higher center if he could no longer make decisions for himself and his respiratory status declined. Physical Exam Vital Signs: Temp Pulse Resp BP Pulse Ox 98.4 F 117 H 18 144/76 H 90 L 12/23/16 11:44 12/23/16 14:00 12/23/16 11:44 12/23/16 11:44 12/23/16 11:44 Intake & Output 12/22/16 12/23/16 12/24/16 06:59 06:59 06:59 Intake Total 640 175 Output Total 0 Balance 640 175 Weight 97.4 kg GENERAL: This is a well-developed well-nourished appearing white male resting On the side of his bed currently in no acute distress. HEART: Regular rate and rhythm. Positive murmur. No elevated JVD. Rubs or gallops. LUNGS: Clear to auscultation bilaterally with equal rise and fall of the chest. ABDOMEN: Soft, nontender,. Distended status post thoracentesis with normoactive bowel sounds EXTREMETIES: No clubbing, cyanosis. Anasarca is present extending all the way from the feet up into the abdomen. Peripheral pulses bilaterally are difficult to palpate. NEURO: Awake, alert and oriented 3. Cranial nerves II through XII are grossly intact. Results Laboratory Results: 12/23/16 04:30 12/23/16 04:30 12/22/16 12/22/16 12/22/16 20:43 20:43 20:43 WBC 7.6 RBC 4.21 L Hgb 13.8 Hct 41.3 MCV 98 H MCH 32.8 MCHC 33.5 RDW 15.3 H Plt Count 136 L Seg Neutrophils % 68.5 Lymphocytes % 20.6 Monocytes % 8.3 Eosinophils % 1.5 Basophils % 1.1 Absolute Neutrophils 5.2 Absolute Lymphocytes 1.6 Absolute Monocytes 0.6 Absolute Eosinophils 0.1 Absolute Basophils 0.1 Sodium 130.6 L Potassium 4.8 Chloride 96 L Carbon Dioxide 20 L Anion Gap 15 BUN 43 H Creatinine 1.23 Est GFR ( Amer) > 60 Est GFR (Non-Af Amer) > 60 Glucose 107 Calcium 8.9 Phosphorus Magnesium 2.4 H Total Bilirubin 2.1 H AST 31 ALT 41 Alkaline Phosphatase 103 Total Protein 6.2 L Albumin 3.7 Triglycerides Cholesterol LDL Cholesterol Direct VLDL Cholesterol HDL Cholesterol Free T4 1.39 Free T3 pg/mL 3.35 Fluid Type Fluid Source Fluid Color Fluid Appearance Fluid Viscosity Fluid WBC Fluid RBC 12/23/16 12/23/16 12/23/16 04:30 04:30 11:17 WBC 7.1 RBC 4.16 L Hgb 13.6 Hct 40.8 MCV 98 H MCH 32.6 MCHC 33.2 RDW 15.6 H Plt Count 124 L Seg Neutrophils % 72.4 Lymphocytes % 16.4 Monocytes % 8.6 Eosinophils % 1.4 Basophils % 1.2 Absolute Neutrophils 5.1 Absolute Lymphocytes 1.2 Absolute Monocytes 0.6 Absolute Eosinophils 0.1 Absolute Basophils 0.1 Sodium 131.6 L Potassium 4.4 Chloride 98 Carbon Dioxide 21 L Anion Gap 13 BUN 42 H Creatinine 1.09 Est GFR ( Amer) > 60 Est GFR (Non-Af Amer) > 60 Glucose 93 Calcium 9.3 Phosphorus 3.9 Magnesium 2.4 H Total Bilirubin 2.5 H AST 32 ALT 36 Alkaline Phosphatase 105 Total Protein 6.2 L Albumin 3.7 Triglycerides 81 Cholesterol 97.96 LDL Cholesterol Direct 68 VLDL Cholesterol 16.0 HDL Cholesterol 19 L Free T4 Free T3 pg/mL Fluid Type PERITONEAL Fluid Source ASCITES Fluid Color YELLOW Fluid Appearance SLIGHTLY HAZY Fluid Viscosity LIQUID Fluid WBC 233 Fluid RBC 957 12/22/16 20:43 Troponin I 0.020 Impressions: Chest X-Ray 12/21/16 20:38 IMPRESSION: Cardiomegaly. No other significant findings. Abdomen Ultrasound 12/21/16 21:54 IMPRESSION: Hepatomegaly. Moderate ascites is present in all 4 quadrants ascites. Portal vein not able to be assessed due to labored breathing. Gallbladder wall thickening without intraluminal stones. Chest/Abdomen CTA 12/22/16 02:51 IMPRESSION: No pulmonary emboli. Cardiomegaly. Reflux of intravenous contrast into the IVC and the hepatic veins , may be seen with right heart failure. Small right pleural effusion. Bibasilar atelectasis. Mild mediastinal adenopathy. Mild emphysema. Small ascites. Paracentesis Ultrasound 12/23/16 00:00 IMPRESSION: Successful ultrasound-guided diagnostic and therapeutic paracentesis Assessment & Plan - Diagnosis (1) Congestive heart failure Qualifiers: Congestive heart failure type: combined Congestive heart failure chronicity : acute on chronic Qualified Code(s): I50.43 - Acute on chronic combined systolic (congestive) and diastolic (congestive) heart failure Is this a current diagnosis for this admission?: Yes Plan: Continue aggressive diuresis. The patient is status post thoracentesis. The patient refuses transfer to a higher center for further treatment as per Dr. Ayala's recommendations. We will begin Entresto. The patient will need to follow-up as an outpatient after discharge. [facility] medical management and then discharge home. (2) Ascites Qualifiers: Ascites type: other type Qualified Code(s): R18.8 - Other ascites Is this a current diagnosis for this admission?: Yes Plan: Status post thoracentesis. The patient feels better from a respiratory standpoint and in terms of abdominal discomfort. (3) Atrial fibrillation with rapid ventricular response Is this a current diagnosis for this admission?: Yes Plan: Continue digoxin as well as rate control. (4) HTN (hypertension) Qualifiers: Hypertension type: essential hypertension Qualified Code(s): I10 - Essential (primary) hypertension Is this a current diagnosis for this admission?: Yes Plan: Continue current medications. (5) Hyponatremia Plan: This is a hypervolemic hyponatremia. At this point he seems to be stable and secondary to his underlying failure. The patient also has some abnormal liver function tests and has questionable underlying cirrhosis. Patient is not aware of a formal diagnosis of cirrhosis however. (6) Hypertensive urgency Plan: We will begin Coreg twice a day. Continue as needed medications. The patient' s diastolic pressures have been well above 100 at the bedside. Likely this is contributing to his underlying congestive heart failure. - Time Time Spent with patient: 25-34 minutes Anticipated discharge: Home Within: within 36 hours - Inpatient Certification Medical Necessity: Need Close Monitoring Due to Risk of Patient Decompensation
--- NOTE | 2016-12-23 20:41 | PDOC H&P ---
History of Present Illness Admission Date/PCP: 12/22/16 09:30 LIZBET HUFFMAN MD Patient complains of: Leg swelling, abdominal swelling and SOB History of Present Illness: ISAAC JOHNSON is a 56 year old male with history of alcohol abuse, averaging a case of beer per day, and a history of tobacco abuse, up to 2 packs a day, having stopped both approximately a month ago who presents to the emergency room for evaluation of above complaints. Patient was agitated at the time his was seen in the ED stating that he has been sitting here since yesterday evening. He reports 2 week history of slowly progressive abdominal and lower extremity swelling with hurting "all over." Early satiety. Intermittent shortness of breath. Occasional nausea and vomiting after eating, but not very often. De denies leg or abdominal swelling in the past. Patient states that he was started on lasix, lisinopril and HCTZ for hypertension. He states that the doctor who was managing him moved to [place]. He was evaluated by a new doctor who sent him for US of his stomach and was told that something may be wrong with his liver. He was instructed to go to the hospital. On presentation to the ED he was found to be in atrial fibrillation with rapid ventricular response, pulse rate in the 140s upon arrival. Started on Cardizem drip, which is since been stopped due to hypotension. Patient was given a bolus and digoxin the control the heart rate. Again, no chest pain. Patient is a poor historian. This history was confirmed. Patient on repeated questioning denied any chest pain. He denied any prior history of atrial fibrillation, congestive heart failure etc. Past Medical History Cardiac Medical History: Reports: Hyperlipidema, Hypertension Denies: Atrial Fibrillation, Congestive Heart Failure, Coronary Artery Disease, DVT, Myocardial Infarction, Pulmonary Embolism Pulmonary Medical History: Denies: Asthma, Chronic Obstructive Pulmonary Disease (COPD), Sleep Apnea EENT Medical History: Reports: Eyes - Glasses, Ears - Partial hearing loss Denies: Throat Neurological Medical History: Denies: Hemorrhagic CVA, Ischemic CVA, Seizures Endocrine Medical History: Denies: Diabetes Mellitus Type 1, Diabetes Mellitus Type 2, Hyperthyroidism, Hypothyroidism Renal/ Medical History: Reports: None GI Medical History: Denies: Cirrhosis, Gastroesophageal Reflux Disease, Hepatitis, Peptic Ulcer Disease Musculoskeltal Medical History: Reports: Arthritis Skin Medical History: Reports: None Psychiatric Medical History: Reports: Other - History of alcohol and tobacco abuse; none for the past 1 month. Denies: Alcohol Dependency, Depression, General Anxiety Disorder, Substance Abuse, Tobacco Dependency Hematology: Reports: None Infectious Medical History: Denies: Hepatitis B, Hepatitis C Past Surgical History Past Surgical History: Reports: None Social History Information Source: Patient Lives with: Family Smoking Status: Former Smoker Frequency of Alcohol Use: Heavy Drugs: None Hx Prescription Drug Abuse: No - Advance Directive Resuscitation Status: Full Code Family History Family History: Reviewed & Not Pertinent Parental Family History Reviewed: Yes Children Family History Reviewed: Yes Sibling(s) Family History Reviewed.: Yes Medication/Allergy Home Medications: Furosemide [Lasix 20 mg Tablet] 20 mg PO QAM 12/22/16 Lisinopril/Hydrochlorothiazide [Lisinopril-Hctz 20-12.5 mg Tab] 1 tab PO DAILY 12/22/16 Allergies/Adverse Reactions: No Known Allergies Allergy (Verified 12/21/16 19:49) Review of Systems Constitutional: PRESENT: fatigue, weight gain Eyes: ABSENT: visual disturbances Ears: ABSENT: hearing changes Nose, Mouth, and Throat: ABSENT: mouth pain Cardiovascular: PRESENT: edema. ABSENT: chest pain Respiratory: PRESENT: dyspnea Gastrointestinal: PRESENT: abdominal pain, bloating, dysphagia Genitourinary: ABSENT: difficulty urinating Musculoskeletal: ABSENT: deformity Integumentary: ABSENT: rash Neurological: ABSENT: focal weakness Psychiatric: ABSENT: depression Endocrine: ABSENT: cold intolerance Hematologic/Lymphatic: ABSENT: lymphadenopathy Allergic/Immunologic: ABSENT: seasonal rhinorrhea Physical Exam Vital Signs: Temp Pulse Resp BP Pulse Ox 98.4 F 50 L 18 144/76 H 90 L 12/23/16 11:44 12/23/16 11:44 12/23/16 11:44 12/23/16 11:44 12/23/16 11:44 Intake & Output 12/22/16 12/23/16 12/24/16 06:59 06:59 06:59 Intake Total 640 175 Output Total 0 Balance 640 175 Weight 97.4 kg General appearance: PRESENT: no acute distress, disheveled Head exam: PRESENT: normocephalic Eye exam: PRESENT: EOMI. ABSENT: scleral icterus Teeth exam: PRESENT: poor dentation Neck exam: PRESENT: full ROM. ABSENT: JVD Respiratory exam: PRESENT: decreased breath sounds, unlabored. ABSENT: tachypnea Cardiovascular exam: PRESENT: irregular rhythm GI/Abdominal exam: PRESENT: ascites, distended, firm, normal bowel sounds Rectal exam: PRESENT: deferred Extremities exam: PRESENT: full ROM, pedal edema Musculoskeletal exam: PRESENT: ambulatory Neurological exam: PRESENT: alert, awake, oriented to person, oriented to place , oriented to time, CN II-XII grossly intact Psychiatric exam: PRESENT: agitated Skin exam: PRESENT: dry, warm Results Laboratory Results: 12/23/16 04:30 12/23/16 04:30 12/22/16 12/22/16 12/22/16 20:43 20:43 20:43 WBC 7.6 RBC 4.21 L Hgb 13.8 Hct 41.3 MCV 98 H MCH 32.8 MCHC 33.5 RDW 15.3 H Plt Count 136 L Seg Neutrophils % 68.5 Lymphocytes % 20.6 Monocytes % 8.3 Eosinophils % 1.5 Basophils % 1.1 Absolute Neutrophils 5.2 Absolute Lymphocytes 1.6 Absolute Monocytes 0.6 Absolute Eosinophils 0.1 Absolute Basophils 0.1 Sodium 130.6 L Potassium 4.8 Chloride 96 L Carbon Dioxide 20 L Anion Gap 15 BUN 43 H Creatinine 1.23 Est GFR ( Amer) > 60 Est GFR (Non-Af Amer) > 60 Glucose 107 Calcium 8.9 Phosphorus Magnesium 2.4 H Total Bilirubin 2.1 H AST 31 ALT 41 Alkaline Phosphatase 103 Total Protein 6.2 L Albumin 3.7 Triglycerides Cholesterol LDL Cholesterol Direct VLDL Cholesterol HDL Cholesterol Free T4 1.39 Free T3 pg/mL 3.35 Fluid Type Fluid Source Fluid Color Fluid Appearance Fluid Viscosity Fluid WBC Fluid RBC 12/23/16 12/23/16 12/23/16 04:30 04:30 11:17 WBC 7.1 RBC 4.16 L Hgb 13.6 Hct 40.8 MCV 98 H MCH 32.6 MCHC 33.2 RDW 15.6 H Plt Count 124 L Seg Neutrophils % 72.4 Lymphocytes % 16.4 Monocytes % 8.6 Eosinophils % 1.4 Basophils % 1.2 Absolute Neutrophils 5.1 Absolute Lymphocytes 1.2 Absolute Monocytes 0.6 Absolute Eosinophils 0.1 Absolute Basophils 0.1 Sodium 131.6 L Potassium 4.4 Chloride 98 Carbon Dioxide 21 L Anion Gap 13 BUN 42 H Creatinine 1.09 Est GFR ( Amer) > 60 Est GFR (Non-Af Amer) > 60 Glucose 93 Calcium 9.3 Phosphorus 3.9 Magnesium 2.4 H Total Bilirubin 2.5 H AST 32 ALT 36 Alkaline Phosphatase 105 Total Protein 6.2 L Albumin 3.7 Triglycerides 81 Cholesterol 97.96 LDL Cholesterol Direct 68 VLDL Cholesterol 16.0 HDL Cholesterol 19 L Free T4 Free T3 pg/mL Fluid Type PERITONEAL Fluid Source ASCITES Fluid Color YELLOW Fluid Appearance SLIGHTLY HAZY Fluid Viscosity LIQUID Fluid WBC 233 Fluid RBC 957 12/22/16 20:43 Troponin I 0.020 Impressions: Chest X-Ray 12/21/16 20:38 IMPRESSION: Cardiomegaly. No other significant findings. Abdomen Ultrasound 12/21/16 21:54 IMPRESSION: Hepatomegaly. Moderate ascites is present in all 4 quadrants ascites. Portal vein not able to be assessed due to labored breathing. Gallbladder wall thickening without intraluminal stones. Chest/Abdomen CTA 12/22/16 02:51 IMPRESSION: No pulmonary emboli. Cardiomegaly. Reflux of intravenous contrast into the IVC and the hepatic veins , may be seen with right heart failure. Small right pleural effusion. Bibasilar atelectasis. Mild mediastinal adenopathy. Mild emphysema. Small ascites. Paracentesis Ultrasound 12/23/16 00:00 IMPRESSION: Successful ultrasound-guided diagnostic and therapeutic paracentesis Assessment & Plan - Diagnosis (1) Ascites Qualifiers: Ascites type: other type Qualified Code(s): R18.8 - Other ascites Is this a current diagnosis for this admission?: Yes Plan: Patient may have hepatic failure and heart failure resulting from years of drinking resulting in ascities. Patient is distended and is having difficulty breathing and discomfort. Will give albumin and midodrine to increase patients blood pressure in preparation for therapeutic and diagnostic paracentesis. (2) Atrial fibrillation with rapid ventricular response Is this a current diagnosis for this admission?: Yes Plan: Patient did not tolerate cardizem as he became more hypotensive. Patient as given digoxin and metoprolol. Cardiology consulted and recommend digoxin 0.25 Q4 until 2mg total. Will make sure potassium in kept at 4 and magnesium at 2. (3) Congestive heart failure Qualifiers: Congestive heart failure type: combined Congestive heart failure chronicity : acute on chronic Qualified Code(s): I50.43 - Acute on chronic combined systolic (congestive) and diastolic (congestive) heart failure Is this a current diagnosis for this admission?: Yes Plan: Concerned that patient may have dilated cardiomyopathy due to his excessive drinking history. Cardiac echo ordered and cardiology consulted. Patient is unable to tolerate beta alicja and ACEI at this time due to hypotension. (4) Hypotension Qualifiers: Hypotension type: unspecified hypotension type Qualified Code(s): I95.9 - Hypotension, unspecified Is this a current diagnosis for this admission?: Yes Plan: This could be due to his hepatic failure, heart failure and atrial fibrilation. Patient being given albumin and midodrine to help with the hypotension. Digoxin should correct the arrhythmia and improve cardiac out put. Will not given fluids as patient has anasarca, ascites and SOB and actually needs to be diuresed. (5) Peripheral edema Is this a current diagnosis for this admission?: Yes Plan: Due to hepatic failure and or CHF. Will attempt to increase blood pressure with albumin and midodrine and diurese with lasix and aldactone. (6) Renal insufficiency Is this a current diagnosis for this admission?: Yes (7) Thrombocytopenia Is this a current diagnosis for this admission?: Yes Plan: Due to liver failure. Will avoid low molecular weight heparin and monitor for signs of bleeding. (8) History of alcohol abuse Is this a current diagnosis for this admission?: Yes Plan: Patient states he quit a month ago. (9) History of tobacco abuse Is this a current diagnosis for this admission?: Yes Plan: Patient counseled on cessation. - Time Time Spent: 30 to 50 Minutes Critical Time spent with patient: Less than 15 minutes Smoking Cessation Education: 3 to 10 minutes Medications reviewed and adjusted accordingly: Yes Anticipated discharge: Home - Patient is very sick and transfer to higher level of care recommended by cardiology however patient refusing. - Inpatient Certification Medical Necessity: Need Close Monitoring Due to Risk of Patient Decompensation - Patient with what appears to be cardiac and liver failure. In addition to tachyarrhythmia. He requires hospitalization and stablization and possible transfer to [facility].
[2016-12-23] MEDS: METOPROLOL SUCCINATE 25 MG TAB.SR.24H PO SCH (21:40)
[2016-12-23] MEDS ORDERED: CARVEDILOL 6.25 MG TABLET PO SCH (22:00)
[2016-12-24] MEDS: LANSOPRAZOLE 30 MG TAB.RAP.DR PO SCH (06:00)
[2016-12-24] MEDS: MIDODRINE HCL 5 MG TABLET PO SCH ×3 (06:00→17:24)
[2016-12-24 06:01] LABS: ABSOLUTE EOSINOPHILS # (AUTO) 0.2 10^3/uL (0.0-0.6); ABSOLUTE LYMPHOCYTES (AUTO) 1.5 10^3/uL (0.5-4.7); ABSOLUTE MONOCYTES (AUTO) 0.7 10^3/uL (0.1-1.4); ABSOLUTE NEUT (AUTO) 4.8 10^3/uL (1.7-8.2); BASOPHILS % (AUTO) 0.7 % (0-2); EOSINOPHILS % (AUTO) 2.2 % (0-6); HEMATOCRIT 41.1 % (37.9-51.0); HEMOGLOBIN 13.4 g/dL (13.5-17.0); HGB HCT DIFFERENCE -0.9; LYMPHOCYTES % (AUTO) 20.4 % (13-45); MEAN CORPUSCULAR HEMOGLOBIN 32.2 pg (27.0-33.4); MEAN CORPUSCULAR HGB CONC 32.7 g/dL (32.0-36.0); MEAN CORPUSCULAR VOLUME 99 fl (80-97); MONOCYTES % (AUTO) 9.4 % (3-13); RED BLOOD COUNT 4.17 10^6/uL (4.35-5.55); RED CELL DISTRIBUTION WIDTH 15.2 % (11.5-14.0); SEGMENTED NEUTROPHILS % (AUTO) 67.3 % (42-78); WHITE BLOOD COUNT 7.1 10^3/uL (4.0-10.5)
[2016-12-24 06:17] LABS: ANION GAP 12 (5-19); BLOOD UREA NITROGEN 43 mg/dL (7-20); CALCIUM 9.2 mg/dL (8.4-10.2); CARBON DIOXIDE 25 mmol/L (22-30); CHLORIDE 95 mmol/L (98-107); CREATININE RESULT 1.25 mg/dL (0.52-1.25); GLUCOSE 85 mg/dL (75-110); MAGNESIUM 2.2 mg/dL (1.6-2.3); POTASSIUM 4.2 mmol/L (3.6-5.0); SODIUM 131.6 mmol/L (137-145)
[2016-12-24] MEDS: FUROSEMIDE INJ/PF 40 MG/4 ML SDV IV SCH ×2 (10:12→17:22)
[2016-12-24] MEDS: RANOLAZINE 500 MG TAB.SR.12H PO SCH ×2 (10:14→21:42)
[2016-12-24] MEDS: THIAMINE HCL 100 MG TABLET PO SCH (10:14)
[2016-12-24] MEDS: DIGOXIN 0.125 MG TABLET PO SCH (10:14)
[2016-12-24] MEDS: MULTIVITAMIN TABLET PO SCH (10:15)
[2016-12-24] MEDS: FOLIC ACID 1 MG TABLET PO SCH (10:15)
--- NOTE | 2016-12-24 11:29 | PDOC PROGRESS REPORT ---
Subjective Progress Note for:: 12/23/16 Subjective:: Feels better, had paracentesis. Patient remains in atrial fibrillation. Is still in considerable CHF. Heart rate still somewhat high. Patient was given multiple doses of IV digoxin. Today I am going to start him on Ranexa. This will help with heart rate control and may also help with diastolic dysfunction. Patient claims to be feeling better after paracentesis. Patient continues to decline any transfer to tertiary care for further evaluation and assessment. Physical Exam Vital Signs: Temp Pulse Resp BP Pulse Ox 98.3 F 78 19 108/79 97 12/23/16 19:36 12/23/16 19:36 12/23/16 19:36 12/23/16 19:36 12/23/16 19:36 Intake & Output 12/22/16 12/23/16 12/24/16 06:59 06:59 06:59 Intake Total 640 525 Output Total 0 600 Balance 640 -75 Weight 97.4 kg Exam: GENERAL: well-nourished and in no acute distress. Alert and oriented x3 HEAD: Atraumatic, normocephalic. EYES: Pupils equal round and reactive to light, extraocular movements intact, sclera anicteric, conjunctiva are normal. ENT: TMs normal, nares patent, oropharynx clear without exudates. Moist mucous membranes. No oral ulcerations or bleeding gums noted NECK: supple without lymphadenopathy. Trachea is central. No cervical or axillary lymphadenopathy noted. Carotids are 2+, JVD 14 cm LUNGS: Respiration seems nonlabored, no significant accessory muscle action noted. Bibasilar fine crackles and minimal dullness noted both bases. CHEST: Palpation of the chest wall shows no significant chest wall tenderness. No other significant abnormalities noted. 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 ABDOMEN: Soft, no significant tenderness appreciated, normoactive bowel sounds. No guarding, no rebound. No rigidity noted . No masses appreciated. EXTREMITIES: Pedal pulses are 1-2+, no calf tenderness noted. No clubbing or cyanosis. 1-2 + pedal edema noted NEUROLOGICAL: Focused neurological exam showed no significant neurologic deficit. Normal speech, no focal weakness appreciated. PSYCH: Normal mood, normal affect. Judgment and insight within normal limits. SKIN: No significant ecchymosis, rash, ulcerations or signs of pruritus noted. MUSCULOSKELETAL EXAM: No significant joint swelling noted. Results Laboratory Results: 12/23/16 04:30 12/23/16 04:30 12/22/16 12/22/16 12/22/16 20:43 20:43 20:43 WBC 7.6 RBC 4.21 L Hgb 13.8 Hct 41.3 MCV 98 H MCH 32.8 MCHC 33.5 RDW 15.3 H Plt Count 136 L Seg Neutrophils % 68.5 Lymphocytes % 20.6 Monocytes % 8.3 Eosinophils % 1.5 Basophils % 1.1 Absolute Neutrophils 5.2 Absolute Lymphocytes 1.6 Absolute Monocytes 0.6 Absolute Eosinophils 0.1 Absolute Basophils 0.1 Sodium 130.6 L Potassium 4.8 Chloride 96 L Carbon Dioxide 20 L Anion Gap 15 BUN 43 H Creatinine 1.23 Est GFR ( Amer) > 60 Est GFR (Non-Af Amer) > 60 Glucose 107 Calcium 8.9 Phosphorus Magnesium 2.4 H Total Bilirubin 2.1 H AST 31 ALT 41 Alkaline Phosphatase 103 Total Protein 6.2 L Albumin 3.7 Triglycerides Cholesterol LDL Cholesterol Direct VLDL Cholesterol HDL Cholesterol Free T4 1.39 Free T3 pg/mL 3.35 Fluid Type Fluid Source Fluid Color Fluid Appearance Fluid Viscosity Fluid WBC Fluid RBC 12/23/16 12/23/16 12/23/16 04:30 04:30 11:17 WBC 7.1 RBC 4.16 L Hgb 13.6 Hct 40.8 MCV 98 H MCH 32.6 MCHC 33.2 RDW 15.6 H Plt Count 124 L Seg Neutrophils % 72.4 Lymphocytes % 16.4 Monocytes % 8.6 Eosinophils % 1.4 Basophils % 1.2 Absolute Neutrophils 5.1 Absolute Lymphocytes 1.2 Absolute Monocytes 0.6 Absolute Eosinophils 0.1 Absolute Basophils 0.1 Sodium 131.6 L Potassium 4.4 Chloride 98 Carbon Dioxide 21 L Anion Gap 13 BUN 42 H Creatinine 1.09 Est GFR ( Amer) > 60 Est GFR (Non-Af Amer) > 60 Glucose 93 Calcium 9.3 Phosphorus 3.9 Magnesium 2.4 H Total Bilirubin 2.5 H AST 32 ALT 36 Alkaline Phosphatase 105 Total Protein 6.2 L Albumin 3.7 Triglycerides 81 Cholesterol 97.96 LDL Cholesterol Direct 68 VLDL Cholesterol 16.0 HDL Cholesterol 19 L Free T4 Free T3 pg/mL Fluid Type PERITONEAL Fluid Source ASCITES Fluid Color YELLOW Fluid Appearance SLIGHTLY HAZY Fluid Viscosity LIQUID Fluid WBC 233 Fluid RBC 957 12/22/16 20:43 Troponin I 0.020 EKG Comments: Telemetry strip shows atrial fibrillation with rapid ventricular response. Bundle branch block pattern noted Impressions: Chest X-Ray 12/21/16 20:38 IMPRESSION: Cardiomegaly. No other significant findings. Abdomen Ultrasound 12/21/16 21:54 IMPRESSION: Hepatomegaly. Moderate ascites is present in all 4 quadrants ascites. Portal vein not able to be assessed due to labored breathing. Gallbladder wall thickening without intraluminal stones. Chest/Abdomen CTA 12/22/16 02:51 IMPRESSION: No pulmonary emboli. Cardiomegaly. Reflux of intravenous contrast into the IVC and the hepatic veins , may be seen with right heart failure. Small right pleural effusion. Bibasilar atelectasis. Mild mediastinal adenopathy. Mild emphysema. Small ascites. Paracentesis Ultrasound 12/23/16 00:00 IMPRESSION: Successful ultrasound-guided diagnostic and therapeutic paracentesis Assessment & Plan - Diagnosis (1) Congestive heart failure Qualifiers: Congestive heart failure type: combined Congestive heart failure chronicity : acute on chronic Qualified Code(s): I50.43 - Acute on chronic combined systolic (congestive) and diastolic (congestive) heart failure Is this a current diagnosis for this admission?: Yes (2) Coronary artery disease Qualifiers: Coronary Disease-Associated Artery/Lesion type: [place] artery Associated angina: angina presence unspecified Is this a current diagnosis for this admission?: Yes (3) Atrial fibrillation with rapid ventricular response Is this a current diagnosis for this admission?: Yes (4) Elevated LFTs Is this a current diagnosis for this admission?: Yes (5) HTN (hypertension) Qualifiers: Hypertension type: essential hypertension Qualified Code(s): I10 - Essential (primary) hypertension Is this a current diagnosis for this admission?: Yes (6) Hypotension Qualifiers: Hypotension type: unspecified hypotension type Qualified Code(s): I95.9 - Hypotension, unspecified Is this a current diagnosis for this admission?: Yes (7) Peripheral edema Is this a current diagnosis for this admission?: Yes (8) Renal insufficiency Is this a current diagnosis for this admission?: Yes (9) History of alcohol abuse Is this a current diagnosis for this admission?: Yes - Notes Notes: Patient continues to decline any transfer to tertiary care. Medical management is being gradually optimized. Case discussed with hospitalist. Plan is to start patient on entresto therapy. Continue IV Lasix. Congestive heart failure: Patient seems to have severely depressed LVEF based on echocardiogram review. At this point blood pressure is low. CHF most likely related to underlying dilated cardiomyopathy but since patient has coronary calcification, patient could have had prior myocardial infarction. Will gradually optimized therapy as allowed by the blood pressure. Start Ranexa. Will strongly recommend starting entresto therapy at a low dose. Coronary artery disease: This is present since patient has coronary calcification. Atrial fibrillation: Probably chronic based on left atrial enlargement. Patient also does not feel palpitations therefore difficult to assess how long has this been going on. Chronic anticoagulation to be started. Elevated LFT: Most likely related to CHF but cannot rule out alcoholic hepatitis. Hypertension: Patient however currently hypotensive. Will optimize therapy for cardiomyopathy and CHF. Peripheral edema: Possibly related to CHF but could well be risk partly from venous insufficiency, albumin noted to be mildly low. Etc. Renal insufficiency: Most likely related to atherosclerotic disease. Continue to observe very closely. History of alcohol abuse: Stable. Watch for any withdrawal. Currently without any withdrawal symptoms - Time Time with patient: Greater than 35 minutes - CODE STATUS was discussed, patient remains full code. Surrogate decision-maker unchanged. Multiple medical problems were addressed. More than 50% of the time spent coordinating care, discussing management plans with involved caregivers. Management plans discussed with involved personnels. Medical decision making was of moderate to high complexity, patient's has multiple comorbidities. Medications reviewed and adjusted accordingly: Yes
[2016-12-24] MEDS: METOPROLOL SUCCINATE 25 MG TAB.SR.24H PO SCH ×2 (11:31→21:47)
[2016-12-24] MEDS: SPIRONOLACTONE 25 MG TABLET PO SCH (11:32)
--- NOTE | 2016-12-24 11:37 | PDOC PROGRESS REPORT ---
Subjective Progress Note for:: 12/24/16 Subjective:: Claims to be feeling better. Patient remains in atrial fibrillation. Is still in considerable CHF. Heart rate still somewhat high. Patient was given multiple doses of IV digoxin now on digoxin p.o. Currently on Ranexa, metoprolol for rate control. Patient also seems to be on carvedilol.. This will help with heart rate control and may also help with diastolic dysfunction. Patient claims to be feeling better after paracentesis. Patient continues to decline any transfer to tertiary care for further evaluation and assessment. Physical Exam Vital Signs: Temp Pulse Resp BP Pulse Ox 97.6 F 62 16 109/92 H 98 12/24/16 03:34 12/24/16 07:35 12/24/16 07:35 12/24/16 07:35 12/24/16 07:35 Intake & Output 12/23/16 12/24/16 12/25/16 06:59 06:59 06:59 Intake Total 640 1125 Output Total 0 1450 Balance 640 -325 Weight 97.4 kg 95.4 kg Exam: GENERAL: well-nourished and in no acute distress. Alert and oriented x3 HEAD: Atraumatic, normocephalic. EYES: Pupils equal round and reactive to light, extraocular movements intact, sclera anicteric, conjunctiva are normal. ENT: TMs normal, nares patent, oropharynx clear without exudates. Moist mucous membranes. No oral ulcerations or bleeding gums noted NECK: supple without lymphadenopathy. Trachea is central. No cervical or axillary lymphadenopathy noted. Carotids are 2+, JVD 14 cm LUNGS: Respiration seems nonlabored, no significant accessory muscle action noted. Bibasilar fine crackles noted. No significant dullness noted CHEST: Palpation of the chest wall shows no significant chest wall tenderness. No other significant abnormalities noted. 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 ABDOMEN: Soft, no significant tenderness appreciated, normoactive bowel sounds. No guarding, no rebound. No rigidity noted . No masses appreciated. EXTREMITIES: Pedal pulses are 1-2+, no calf tenderness noted. No clubbing or cyanosis. 1-2 + pedal edema noted NEUROLOGICAL: Focused neurological exam showed no significant neurologic deficit. Normal speech, no focal weakness appreciated. PSYCH: Normal mood, normal affect. Judgment and insight within normal limits. SKIN: No significant ecchymosis, rash, ulcerations or signs of pruritus noted. MUSCULOSKELETAL EXAM: No significant joint swelling noted. Results Laboratory Results: 12/24/16 05:28 12/24/16 05:28 12/23/16 12/24/16 12/24/16 11:17 05:28 05:28 WBC 7.1 RBC 4.17 L Hgb 13.4 L Hct 41.1 MCV 99 H MCH 32.2 MCHC 32.7 RDW 15.2 H Plt Count 126 L Seg Neutrophils % 67.3 Lymphocytes % 20.4 Monocytes % 9.4 Eosinophils % 2.2 Basophils % 0.7 Absolute Neutrophils 4.8 Absolute Lymphocytes 1.5 Absolute Monocytes 0.7 Absolute Eosinophils 0.2 Absolute Basophils 0.0 Sodium 131.6 L Potassium 4.2 Chloride 95 L Carbon Dioxide 25 Anion Gap 12 BUN 43 H Creatinine 1.25 Est GFR ( Amer) > 60 Est GFR (Non-Af Amer) > 60 Glucose 85 Calcium 9.2 Magnesium 2.2 Fluid Type PERITONEAL Fluid Source ASCITES Fluid Color YELLOW Fluid Appearance SLIGHTLY HAZY Fluid Viscosity LIQUID Fluid WBC 233 Fluid RBC 957 12/22/16 20:43 Troponin I 0.020 EKG Comments: Atrial fibrillation with mildly increased heart rate. Impressions: Chest X-Ray 12/21/16 20:38 IMPRESSION: Cardiomegaly. No other significant findings. Abdomen Ultrasound 12/21/16 21:54 IMPRESSION: Hepatomegaly. Moderate ascites is present in all 4 quadrants ascites. Portal vein not able to be assessed due to labored breathing. Gallbladder wall thickening without intraluminal stones. Chest/Abdomen CTA 12/22/16 02:51 IMPRESSION: No pulmonary emboli. Cardiomegaly. Reflux of intravenous contrast into the IVC and the hepatic veins , may be seen with right heart failure. Small right pleural effusion. Bibasilar atelectasis. Mild mediastinal adenopathy. Mild emphysema. Small ascites. Paracentesis Ultrasound 12/23/16 00:00 IMPRESSION: Successful ultrasound-guided diagnostic and therapeutic paracentesis Assessment & Plan - Diagnosis (1) Congestive heart failure Qualifiers: Congestive heart failure type: combined Congestive heart failure chronicity : acute on chronic Qualified Code(s): I50.43 - Acute on chronic combined systolic (congestive) and diastolic (congestive) heart failure Is this a current diagnosis for this admission?: Yes (2) Coronary artery disease Qualifiers: Coronary Disease-Associated Artery/Lesion type: [place] artery Associated angina: angina presence unspecified Is this a current diagnosis for this admission?: Yes (3) Atrial fibrillation with rapid ventricular response Is this a current diagnosis for this admission?: Yes (4) Elevated LFTs Is this a current diagnosis for this admission?: Yes (5) HTN (hypertension) Qualifiers: Hypertension type: essential hypertension Qualified Code(s): I10 - Essential (primary) hypertension Is this a current diagnosis for this admission?: Yes (6) Hypotension Qualifiers: Hypotension type: unspecified hypotension type Qualified Code(s): I95.9 - Hypotension, unspecified Is this a current diagnosis for this admission?: Yes (7) Peripheral edema Is this a current diagnosis for this admission?: Yes (8) Renal insufficiency Is this a current diagnosis for this admission?: Yes (9) History of alcohol abuse Is this a current diagnosis for this admission?: Yes - Notes Notes: Started Eliquis, patient started on entresto by hospitalist by my recommendation. Patient remains critically ill. Congestive heart failure: Patient seems to have severely depressed LVEF based on echocardiogram review. Blood pressure has been reasonably stable but mostly on the low side. CHF most likely related to underlying dilated cardiomyopathy but since patient has coronary calcification, patient could have had prior myocardial infarction. Will gradually optimized therapy as allowed by the blood pressure. Coronary artery disease: This is present since patient has coronary calcification. LDL noted to be satisfactory. Atrial fibrillation: Probably chronic based on left atrial enlargement. Patient also does not feel palpitations therefore difficult to assess how long has this been going on. Started patient on Eliquis at 2.5 mg p.o. daily. Low dose used because of concern about renal and hepatic dysfunction. Elevated LFT: Most likely related to CHF but cannot rule out alcoholic hepatitis. Hypertension: Currently on the low side blood pressure.. Peripheral edema: Possibly related to CHF but could well be risk partly from venous insufficiency, continue symptomatic management. Renal insufficiency: Most likely related to atherosclerotic disease. Could be related to low perfusion. Continue to observe very closely. History of alcohol abuse: Stable. Currently no signs of withdrawal - Time Time with patient: Greater than 35 minutes - CODE STATUS was discussed, patient remains full code. Surrogate decision-maker unchanged. Multiple medical problems were addressed. More than 50% of the time spent coordinating care, discussing management plans with involved caregivers. Management plans discussed with involved personnels. Medical decision making was of moderate to high complexity, patient's has multiple comorbidities. Dr. Keshawn Blair to follow from tomorrow. Patient would need to be evaluated for LifeVest and prophylactic defibrillator placement, however his medical management would also need to be optimized gradually.
--- NOTE | 2016-12-24 14:41 | PDOC PROGRESS REPORT ---
Subjective Progress Note for:: 12/24/16 Subjective:: This is a follow-up visit for anasarca and underlying congestive heart failure. The patient feels even better today and feels that his swelling has gone down even more. He feels sleepy and wants a nap. Physical Exam Vital Signs: Temp Pulse Resp BP Pulse Ox 97.5 F 125 H 16 101/79 96 12/24/16 12:10 12/24/16 13:57 12/24/16 12:10 12/24/16 12:10 12/24/16 12:10 Intake & Output 12/23/16 12/24/16 12/25/16 06:59 06:59 06:59 Intake Total 640 1125 475 Output Total 0 1450 700 Balance 640 -325 -225 Weight 97.4 kg 95.4 kg GENERAL: This is a well-developed well-nourished appearing white male resting in bed currently in no acute distress. HEART: Regular rate and rhythm. Positive murmur. elevated JVD. Rubs or gallops. LUNGS: Clear to auscultation bilaterally with equal rise and fall of the chest. ABDOMEN: Soft, nontender. Distended status post thoracentesis with normoactive bowel sounds EXTREMETIES: No clubbing, cyanosis. Anasarca is present extending all the way from the feet up into the abdomen. Peripheral pulses bilaterally are difficult to palpate. NEURO: Awake, alert and oriented 3. Cranial nerves II through XII are grossly intact. Results Laboratory Results: 12/24/16 05:28 12/24/16 05:28 12/24/16 12/24/16 05:28 05:28 WBC 7.1 RBC 4.17 L Hgb 13.4 L Hct 41.1 MCV 99 H MCH 32.2 MCHC 32.7 RDW 15.2 H Plt Count 126 L Seg Neutrophils % 67.3 Lymphocytes % 20.4 Monocytes % 9.4 Eosinophils % 2.2 Basophils % 0.7 Absolute Neutrophils 4.8 Absolute Lymphocytes 1.5 Absolute Monocytes 0.7 Absolute Eosinophils 0.2 Absolute Basophils 0.0 Sodium 131.6 L Potassium 4.2 Chloride 95 L Carbon Dioxide 25 Anion Gap 12 BUN 43 H Creatinine 1.25 Est GFR ( Amer) > 60 Est GFR (Non-Af Amer) > 60 Glucose 85 Calcium 9.2 Magnesium 2.2 12/22/16 20:43 Troponin I 0.020 Impressions: Chest X-Ray 12/21/16 20:38 IMPRESSION: Cardiomegaly. No other significant findings. Abdomen Ultrasound 12/21/16 21:54 IMPRESSION: Hepatomegaly. Moderate ascites is present in all 4 quadrants ascites. Portal vein not able to be assessed due to labored breathing. Gallbladder wall thickening without intraluminal stones. Chest/Abdomen CTA 12/22/16 02:51 IMPRESSION: No pulmonary emboli. Cardiomegaly. Reflux of intravenous contrast into the IVC and the hepatic veins , may be seen with right heart failure. Small right pleural effusion. Bibasilar atelectasis. Mild mediastinal adenopathy. Mild emphysema. Small ascites. Paracentesis Ultrasound 12/23/16 00:00 IMPRESSION: Successful ultrasound-guided diagnostic and therapeutic paracentesis Assessment & Plan - Diagnosis (1) Congestive heart failure Qualifiers: Congestive heart failure type: combined Congestive heart failure chronicity : acute on chronic Qualified Code(s): I50.43 - Acute on chronic combined systolic (congestive) and diastolic (congestive) heart failure Is this a current diagnosis for this admission?: Yes Plan: Continue aggressive diuresis. The patient is status post thoracentesis. The patient refuses transfer to a higher center for further treatment as per Dr. Ayala's recommendations. Entresto could not be started today due to low bp and inability to divide the medication - even at the lowest dose. The patient is on metoprolol. Coreg was discontinued. In addition, the patient is on midodrine, lasix and spironolactone. The patient will need to follow-up as an outpatient after discharge. Optimize medical management and then discharge home. (2) Ascites Qualifiers: Ascites type: other type Qualified Code(s): R18.8 - Other ascites Is this a current diagnosis for this admission?: Yes Plan: Status post thoracentesis. The patient feels better from a respiratory standpoint and in terms of abdominal discomfort. (3) Atrial fibrillation with rapid ventricular response Is this a current diagnosis for this admission?: Yes Plan: Continue digoxin as well as rate control. (4) HTN (hypertension) Qualifiers: Hypertension type: essential hypertension Qualified Code(s): I10 - Essential (primary) hypertension Is this a current diagnosis for this admission?: Yes Plan: Continue current medications. Patient is on midodrine and metoprolol. (5) Hyponatremia Plan: This is a hypervolemic hyponatremia. At this point he seems to be stable and secondary to his underlying failure. The patient also has some abnormal liver function tests and has questionable underlying cirrhosis. Patient is not aware of a formal diagnosis of cirrhosis however. I have not found evidence of such in his history. CT abdomen does not mention cirrhosis. LFTs are normal. Perhaps there was question of this vs passive congestion. (6) Hypertensive urgency Plan: Continue metoprolol. Continue as needed medications. Cardiology following. Occasional hypotension. Patient on midodrine for lows. - Time Time Spent with patient: 25-34 minutes - Inpatient Certification Medical Necessity: Need Close Monitoring Due to Risk of Patient Decompensation
[2016-12-24] MEDS: SACUBITRIL/VALSARTAN 24 MG/26 MG TABLET PO SCH (17:24)
[2016-12-24] MEDS: APIXABAN 2.5 MG TABLET PO SCH (17:30)
[2016-12-24] MEDS ORDERED: SACUBITRIL/VALSARTAN 24 MG/26 MG TABLET PO SCH (18:00)
[2016-12-25] MEDS ORDERED: NORMAL SALINE 1000 ML 250 ML IV ONE ×2 (02:31→02:32)
[2016-12-25] MEDS ORDERED: AMIODARONE HCL INJ 150 MG/3 ML VIAL IV ONE (03:39)
[2016-12-25] MEDS ORDERED: AMIODARONE HCL 150 MG in DEXTROSE 5%-WATER 100 ML IV ONE (03:45)
[2016-12-25] MEDS: DEXTROSE 5%-WATER 500 ML with AMIODARONE HCL 900 MG IV PRN ×2 (04:13)
[2016-12-25 04:16] LABS: ALBUMIN 3.5 g/dL (3.5-5.0); ANION GAP 13 (5-19); BLOOD UREA NITROGEN 40 mg/dL (7-20); CALCIUM 9.4 mg/dL (8.4-10.2); CARBON DIOXIDE 27 mmol/L (22-30); CHLORIDE 93 mmol/L (98-107); CREATININE RESULT 1.18 mg/dL (0.52-1.25); DIGOXIN 0.84 ng/mL (0.8-2.0); GLUCOSE 105 mg/dL (75-110); MAGNESIUM 1.8 mg/dL (1.6-2.3); POTASSIUM 3.8 mmol/L (3.6-5.0); SODIUM 133.4 mmol/L (137-145)
[2016-12-25] MEDS ORDERED: POTASSIUM CHLORIDE 20 MEQ/15 ML UDCUP PO ONE (04:45)
[2016-12-25] MEDS: MIDODRINE HCL 5 MG TABLET PO SCH ×3 (06:51→18:17)
[2016-12-25] MEDS: LANSOPRAZOLE 30 MG TAB.RAP.DR PO SCH (06:51)
--- NOTE | 2016-12-25 08:09 | EKG REPORT ---
SEVERITY:- ABNORMAL ECG - ATRIAL FIBRILLATION, V-RATE 85-163 NONSPECIFIC INTRAVENTRICULAR CONDUCTION DELAY BORDERLINE ST DEPRESSION, INFERIOR LEADS : Confirmed by: José Miguel Craig MD 25-Dec-2016 08:08:40
[2016-12-25] MEDS: METOPROLOL SUCCINATE 25 MG TAB.SR.24H PO SCH ×2 (10:26→22:46)
[2016-12-25] MEDS: FUROSEMIDE INJ/PF 40 MG/4 ML SDV IV SCH ×2 (10:26→19:23)
[2016-12-25] MEDS: SPIRONOLACTONE 25 MG TABLET PO SCH (10:26)
[2016-12-25] MEDS: FOLIC ACID 1 MG TABLET PO SCH (10:33)
[2016-12-25] MEDS: RANOLAZINE 500 MG TAB.SR.12H PO SCH ×2 (10:33→22:45)
[2016-12-25] MEDS: THIAMINE HCL 100 MG TABLET PO SCH (10:34)
[2016-12-25] MEDS: APIXABAN 2.5 MG TABLET PO SCH ×2 (10:34→18:15)
[2016-12-25] MEDS: MULTIVITAMIN TABLET PO SCH (10:34)
[2016-12-25] MEDS ORDERED: MIDODRINE HCL 5 MG TABLET PO ONE (11:00)
[2016-12-25] MEDS ORDERED: FUROSEMIDE 40 MG TABLET PO ONE (12:00)
[2016-12-25] MEDS ORDERED: METOPROLOL TARTRATE 25 MG TABLET PO ONE (12:00)
[2016-12-25] MEDS ORDERED: SPIRONOLACTONE 25 MG TABLET PO ONE (12:00)
--- NOTE | 2016-12-25 15:59 | PDOC PROGRESS REPORT ---
Subjective Progress Note for:: 12/25/16 Subjective:: This is a follow-up visit for anasarca and underlying congestive heart failure. Overnight the patient went to [facility] and had several short episodes of this. Dr. Ayala was consult and suggested amiodarone drip. Patient has also had episodes of hypotension.ed this morning at the bedside he tells me that he will finally agreed to be transferred. He thinks that he is doing well all things considered and that he is still getting off plenty of fluid. I spoke with Dr. Ayala about this patient by phone and he still agreed that the patient will likely need to be transferred for EP consult, cardiac cath, possible defibrillator placement and general management of severe heart failure. I called [facility] transfer line and spoke with . Given the patient's conditions he has agreed to accept him in transfer for further management by cardiology there. Physical Exam Vital Signs: Temp Pulse Resp BP Pulse Ox 97.7 F 104 H 18 105/78 94 12/25/16 10:52 12/25/16 14:00 12/25/16 10:52 12/25/16 14:01 12/25/16 10:52 Intake & Output 12/24/16 12/25/16 12/26/16 06:59 06:59 06:59 Intake Total 1125 2445 0 Output Total 1450 2250 500 Balance -325 195 -500 Weight 95.4 kg 94.2 kg GENERAL: This is a well-developed well-nourished appearing white male resting in bed currently in no acute distress. HEART: Irregular rate and rhythm, tachcardic. 2/6 Positive murmur. elevated JVD. Rubs or gallops. LUNGS: Clear to auscultation bilaterally with equal rise and fall of the chest. ABDOMEN: Soft, nontender. Distended status post thoracentesis with normoactive bowel sounds EXTREMETIES: No clubbing, cyanosis. Anasarca is present extending all the way from the feet up into the abdomen. Peripheral pulses bilaterally are difficult to palpate. NEURO: Awake, alert and oriented 3. Cranial nerves II through XII are grossly intact. Results Laboratory Results: 12/24/16 05:28 12/25/16 03:33 12/25/16 03:33 Sodium 133.4 L Potassium 3.8 Chloride 93 L Carbon Dioxide 27 Anion Gap 13 BUN 40 H Creatinine 1.18 Est GFR ( Amer) > 60 Est GFR (Non-Af Amer) > 60 Glucose 105 Calcium 9.4 Magnesium 1.8 Albumin 3.5 12/22/16 12/25/16 20:43 03:33 Troponin I 0.020 < 0.012 Impressions: Chest X-Ray 12/21/16 20:38 IMPRESSION: Cardiomegaly. No other significant findings. Abdomen Ultrasound 12/21/16 21:54 IMPRESSION: Hepatomegaly. Moderate ascites is present in all 4 quadrants ascites. Portal vein not able to be assessed due to labored breathing. Gallbladder wall thickening without intraluminal stones. Chest/Abdomen CTA 12/22/16 02:51 IMPRESSION: No pulmonary emboli. Cardiomegaly. Reflux of intravenous contrast into the IVC and the hepatic veins , may be seen with right heart failure. Small right pleural effusion. Bibasilar atelectasis. Mild mediastinal adenopathy. Mild emphysema. Small ascites. Paracentesis Ultrasound 12/23/16 00:00 IMPRESSION: Successful ultrasound-guided diagnostic and therapeutic paracentesis Assessment & Plan - Diagnosis (1) Congestive heart failure Qualifiers: Congestive heart failure type: combined Congestive heart failure chronicity : acute on chronic Qualified Code(s): I50.43 - Acute on chronic combined systolic (congestive) and diastolic (congestive) heart failure Is this a current diagnosis for this admission?: Yes Plan: Continue aggressive diuresis. The patient is status post thoracentesis. The patient has prehe now agreesviously refused transfer to a higher center for further treatment as per Dr. Ayala's recommendations. This morning he now agrees to go. I have contacted [facility] and he has been accepted in transfer. Unfortunately, there are no beds available until tomorrow afternoon. I have tried to reach out to Dr. Liao to make him aware. But I have not been able to reach him. (2) Ascites Qualifiers: Ascites type: other type Qualified Code(s): R18.8 - Other ascites Is this a current diagnosis for this admission?: Yes Plan: Status post paracentesis. The patient feels better from a respiratory standpoint and in terms of abdominal discomfort. (3) Atrial fibrillation with rapid ventricular response Is this a current diagnosis for this admission?: Yes Plan: Continue digoxin as well as rate control.The patient has been started on amiodarone drip. We will continue this. (4) HTN (hypertension) Qualifiers: Hypertension type: essential hypertension Qualified Code(s): I10 - Essential (primary) hypertension Is this a current diagnosis for this admission?: Yes Plan: Continue current medications. Patient is on midodrine and metoprolol. (5) Hyponatremia Plan: This is a hypervolemic hyponatremia. At this point he seems to be stable and secondary to his underlying failure. The patient also has some abnormal liver function tests and has questionable underlying cirrhosis. Patient is not aware of a formal diagnosis of cirrhosis however. I have not found evidence of such in his history. CT abdomen does not mention cirrhosis. LFTs are normal. Perhaps there was question of this vs passive congestion. (6) Hypertensive urgency Plan: Continue metoprolol. Continue as needed medications. Cardiology following. Occasional hypotension. Patient on midodrine for lows. - Time Time Spent with patient: 35 or more minutes - Inpatient Certification Medical Necessity: Need Close Monitoring Due to Risk of Patient Decompensation
[2016-12-25] MEDS: SACUBITRIL/VALSARTAN 24 MG/26 MG TABLET PO SCH (19:23)
[2016-12-26] MEDS: DEXTROSE 5%-WATER 500 ML with AMIODARONE HCL 900 MG IV PRN ×2 (03:40)
[2016-12-26 05:32] LABS: ANION GAP 12 (5-19); BLOOD UREA NITROGEN 35 mg/dL (7-20); CARBON DIOXIDE 24 mmol/L (22-30); CHLORIDE 95 mmol/L (98-107); CREATININE RESULT 1.04 mg/dL (0.52-1.25); GLUCOSE 111 mg/dL (75-110); MAGNESIUM 1.8 mg/dL (1.6-2.3); SODIUM 130.9 mmol/L (137-145)
[2016-12-26] MEDS: LANSOPRAZOLE 30 MG TAB.RAP.DR PO SCH (06:37)
[2016-12-26] MEDS: MIDODRINE HCL 5 MG TABLET PO SCH ×2 (06:37→12:18)
[2016-12-26] MEDS: METOPROLOL SUCCINATE 25 MG TAB.SR.24H PO SCH (09:46)
[2016-12-26] MEDS: APIXABAN 2.5 MG TABLET PO SCH (09:48)
[2016-12-26] MEDS: FOLIC ACID 1 MG TABLET PO SCH (09:48)
[2016-12-26] MEDS: SPIRONOLACTONE 25 MG TABLET PO SCH (09:49)
[2016-12-26] MEDS: MULTIVITAMIN TABLET PO SCH (09:49)
[2016-12-26] MEDS: THIAMINE HCL 100 MG TABLET PO SCH (09:49)
[2016-12-26] MEDS: RANOLAZINE 500 MG TAB.SR.12H PO SCH (09:49)
[2016-12-26] MEDS: FUROSEMIDE INJ/PF 40 MG/4 ML SDV IV SCH (09:49)
[2016-12-26] MEDS ORDERED: FUROSEMIDE INJ/PF 40 MG/4 ML SDV IV SCH (12:00)
--- NOTE | 2016-12-26 12:35 | PDOC DISCHARGE SUMMARY ---
General - Admit/Disc Date/PCP Admission Date/Primary Care Provider: 12/22/16 09:30 LIZBET HUFFMAN MD Discharge Date: 12/26/16 - Discharge Diagnosis (1) Congestive heart failure Is this a current diagnosis for this admission?: Yes Summary: The patient is currently on amiodarone drip, metoprolol, Entresto, Midodrine. Transferred to [facility] for further management of severe combined acute on chronic heart failure. (2) Ascites Is this a current diagnosis for this admission?: Yes Summary: Status post paracentesis. Continue diuresis (3) Atrial fibrillation with rapid ventricular response Is this a current diagnosis for this admission?: Yes Summary: Continue metoprolol for rate control and amiodarone. (4) HTN (hypertension) Is this a current diagnosis for this admission?: Yes Summary: The patient has had episodes of hypotension. However he remains on metoprolol and Midrin as per cardiology recommendations. (5) Hyponatremia Summary: Secondary to volume overload. Stable. (6) Hypertensive urgency Summary: Resolved. The patient is now hypotensive more often than he is hypertensive (7) V tach Summary: The patient is currently on an amiodarone drip. - Additional Information Resuscitation Status: Full Code Discharge Diet: Cardiac Discharge Activity: Activity As Tolerated, Balance Activity w/Rest, Weigh Daily Home Medications: Furosemide [Lasix 20 mg Tablet] 20 mg PO QAM 12/22/16 Lisinopril/Hydrochlorothiazide [Lisinopril-Hctz 20-12.5 mg Tab] 1 tab PO DAILY 12/22/16 History of Present Illness History of Present Illness: The patient was admitted to the hospital for progressively worsening shortness of breath and ultimately a diagnosis of acute on chronic congestive heart failure. HPI as per admitting physician: History of Present Illness Admission Date/PCP: 12/22/16 09:30 LIZBET HUFFMAN MD Patient complains of: Leg swelling, abdominal swelling and SOB History of Present Illness: ISAAC JOHNSON is a 56 year old male with history of alcohol abuse, averaging a case of beer per day, and a history of tobacco abuse, up to 2 packs a day, having stopped both approximately a month ago who presents to the emergency room for evaluation of above complaints. Patient was agitated at the time his was seen in the ED stating that he has been sitting here since yesterday evening. He reports 2 week history of slowly progressive abdominal and lower extremity swelling with hurting "all over." Early satiety. Intermittent shortness of breath. Occasional nausea and vomiting after eating, but not very often. De denies leg or abdominal swelling in the past. Patient states that he was started on lasix, lisinopril and HCTZ for hypertension. He states that the doctor who was managing him moved to [place]. He was evaluated by a new doctor who sent him for US of his stomach and was told that something may be wrong with his liver. He was instructed to go to the hospital. On presentation to the ED he was found to be in atrial fibrillation with rapid ventricular response, pulse rate in the 140s upon arrival. Started on Cardizem drip, which is since been stopped due to hypotension. Patient was given a bolus and digoxin the control the heart rate. Again, no chest pain. Patient is a poor historian. This history was confirmed. Patient on repeated questioning denied any chest pain. He denied any prior history of atrial fibrillation, congestive heart failure etc. Hospital Course Hospital Course: This is a 56-year-old white male with a past medical history of alcohol abuse, tobacco abuse who initially presented to the hospital with progressive lower extremity swelling and abdominal swelling. He also reported intermittent shortness of breath. Unfortunately the patient went into A. fib with RVR with a pulse as high as 140 necessitating a Cardizem drip. This was discontinued secondary to low blood pressures. the patient ultimately was started on digoxin. Cardiology was consulted and felt that the patient needed to be transferred out to a tertiary center for perhaps an LV pump. The patient refused. We also offered him the opportunity to be admitted to ICU; however, the patient refused admission to this unit as well.T he patient was admitted [place] [facility] and started and started on Lasix 40 mg IV twice a day. He underwent paracentesis the following day and had approximately 1.6 L taken off of his abdomen. After this the patient reported feeling much better having an easier time breathing. He continued to receive Lasix. The patient unfortunately was in and out of atrial fibrillation. He was started on metoprolol. However, this medication had to be held a number of times or either delayed in its administration secondary to low blood pressures down to the high 80s low 90s. The patient was also started on Entresto and midodrine as pre cardiology. On the day prior to discharge the patient had episodes of V. tach. He was started on amiodarone drip as per cardiology recommendations. After this the patient then agreed to be transferred to a tertiary center. [facility] transfer center was contacted and the patient was accepted in transfer by Dr. Ruiz. The morning of transfer to bed at [facility] was obtained and arrangements for being airlifted out were made. The patient remains tachycardic at bedside in atrial fibrillation at the time of transportation. He currently is denying any chest pain or shortness of breath. He has been off of oxygen for several days. Physical Exam Vital Signs: Temp Pulse Resp BP Pulse Ox 98.3 F 104 H 20 94/68 L 99 12/26/16 08:14 12/26/16 11:00 12/26/16 08:14 12/26/16 11:00 12/26/16 08:14 Intake & Output 12/25/16 12/26/16 12/27/16 06:59 06:59 06:59 Intake Total 2445 1530 Output Total 2250 1250 Balance 195 280 Weight 94.2 kg 93.6 kg GENERAL: This is a well-developed well-nourished appearing white male resting in bed currently in no acute distress. HEART: Irregular rate and rhythm, tachcardic. 2/6 Positive murmur. elevated JVD. Rubs or gallops. LUNGS: Clear to auscultation bilaterally with equal rise and fall of the chest. ABDOMEN: Soft, nontender. Distended status post thoracentesis with normoactive bowel sounds EXTREMETIES: No clubbing, cyanosis. Anasarca is present extending all the way from the feet up into the abdomen. Peripheral pulses bilaterally are difficult to palpate. NEURO: Awake, alert and oriented 3. Cranial nerves II through XII are grossly intact. Results Laboratory Results: 12/24/16 05:28 12/26/16 05:01 12/26/16 05:01 Sodium 130.9 L Potassium 4.0 Chloride 95 L Carbon Dioxide 24 Anion Gap 12 BUN 35 H Creatinine 1.04 Est GFR ( Amer) > 60 Est GFR (Non-Af Amer) > 60 Glucose 111 H Calcium 9.0 Magnesium 1.8 12/23/16 09:50 Abdominal Fluid Gram Stain - Final 12/22/16 12/25/16 20:43 03:33 Troponin I 0.020 < 0.012 Impressions: Chest X-Ray 12/21/16 20:38 IMPRESSION: Cardiomegaly. No other significant findings. Abdomen Ultrasound 12/21/16 21:54 IMPRESSION: Hepatomegaly. Moderate ascites is present in all 4 quadrants ascites. Portal vein not able to be assessed due to labored breathing. Gallbladder wall thickening without intraluminal stones. Chest/Abdomen CTA 12/22/16 02:51 IMPRESSION: No pulmonary emboli. Cardiomegaly. Reflux of intravenous contrast into the IVC and the hepatic veins , may be seen with right heart failure. Small right pleural effusion. Bibasilar atelectasis. Mild mediastinal adenopathy. Mild emphysema. Small ascites. Paracentesis Ultrasound 12/23/16 00:00 IMPRESSION: Successful ultrasound-guided diagnostic and therapeutic paracentesis Qualifiers PATEINT BEING DISCHARGED WITH ANY OF THE FOLLOWING DIAGNOSIS?: No Plan Time Spent: Greater than 30 Minutes
[2016-12-26 13:15] VITALS: BP 112/90
--- NOTE | 2016-12-30 09:53 | XCELERA REPORT ---
[address] [address] Transthoracic Echocardiogram Report Name: ISAAC JOHNSON Age: 56 yrs Gender: Male : 1960 Patient Status: Inpatient Patient Location: [address] [place] [address] Study Date: 12/22/2016 02:25 PM Height: 65 in Weight: 208 lb BSA: 2.0 m2 Procedure: A complete two-dimensional transthoracic echocardiogram was performed (2D, M-mode, spectral and color flow Doppler). The study was technically adequate with some images being suboptimal in quality. Reason For Study: atrial fibrillation Ordering Physician: CARLOS A RODRIGUEZ Performed By: Richa Foster Interpretation Summary Left ventricular systolic function is severely reduced. Doppler measurements suggest pseudonormalized left ventricular relaxation, which is associated with grade II/IV or mild to moderate diastolic dysfunction The left ventricle is mildly dilated. There is severe global hypokinesis of the left ventricle. Septal motion is consistent with conduction abnormality The right ventricle is mild to moderately dilated. The right ventricular systolic function is mild to moderately reduced. The right atrium is mildly dilated. The left atrium is severely dilated. There is a moderate to severe amount of mitral regurgitation There is no mitral valve stenosis. No aortic regurgitation is present. There is no aortic valve stenosis There is a moderate amount of tricuspid regurgitation There is mild pulmonary hypertension by echo Right ventricular systolic pressure is estimated to be elevated at 30- 40mmHg. Minimal pericardial effusion. MMode/2D Measurements & Calculations RVDd: 3.9 cm LVIDd: 5.7 cm FS: 16.4 % Ao root diam: 2.7 cm IVSd: 0.76 cm LVIDs: 4.8 cm EDV(Teich): 161.1 ml LVPWd: 1.00 cm ESV(Teich): 106.3 ml Ao root area: 5.7 cm2 EF(Teich): 34.0 % Doppler Measurements & Calculations Ao V2 max: LV V1 max PG: MR max kody: PA V2 max: 74.6 cm/sec 1.2 mmHg 341.1 cm/sec 43.4 cm/sec Ao max P.2 mmHg LV V1 max: MR max PG: PA max P.4 cm/sec 46.5 mmHg 0.75 mmHg PI end-d kody: TR max kody: 135.7 cm/sec 205.7 cm/sec TR max P.8 mmHg Left Ventricle The left ventricle is mildly dilated. There is normal left ventricular wall thickness. Left ventricular systolic function is severely reduced. Doppler measurements suggest pseudonormalized left ventricular relaxation, which is associated with grade II/IV or mild to moderate diastolic dysfunction. There is severe global hypokinesis of the left ventricle. Septal motion is consistent with conduction abnormality. Right Ventricle The right ventricle is mild to moderately dilated. There is normal right ventricular wall thickness. The right ventricular systolic function is mild to moderately reduced. Atria The right atrium is mildly dilated. The left atrium is severely dilated. Interarterial septum not well visualized and not well dopplered. Cannot comment on ASD/PFO presence. Mitral Valve The mitral valve is grossly normal. There is no mitral valve stenosis. There is a moderate to severe amount of mitral regurgitation. Aortic Valve The aortic valve is not well visualized secondary to technical limitations. There is no aortic valve stenosis. No aortic regurgitation is present. Tricuspid Valve The tricuspid valve is not well visualized, but is grossly normal. There is no tricuspid stenosis. There is a moderate amount of tricuspid regurgitation. There is mild pulmonary hypertension by echo. Right ventricular systolic pressure is estimated to be elevated at 30-40mmHg. Pulmonic Valve The pulmonic valve is not well visualized. Great Vessels The aortic root is not well visualized but is probably normal size. The inferior vena cava appeared dilated and decreased < 50% with respiration (RAP 15-20 mmHg). Effusions Minimal pericardial effusion. : CARLOS A RODRIGUEZ Shyamal
== END 2016-12-26 13:18 | disposition short-term general hospital (02) | DRG 292 ==
LOC: ER 19:21 → EH 12-22 09:30 → UNDOADMIN 12-22 09:50 → 3W 12-22 11:25
PROVIDERS: ADMIT Pediatrics; ATTEND Pediatrics
PROC: 0W9G3ZZ Drainage of Peritoneal Cavity, Percutaneous Approach (ICD-10-PCS; principal; 2016-12-23)
DX: I11.0 Hypertensive heart disease with heart failure (principal); E87.1 Hypo-osmolality and hyponatremia; I47.2 Ventricular tachycardia; I48.2 Chronic atrial fibrillation; I50.43 Acute on chronic combined systolic (congestive) and diastolic (congestive) heart failure; N28.9 Disorder of kidney and ureter, unspecified; E78.5 Hyperlipidemia, unspecified; I95.9 Hypotension, unspecified; F10.10 Alcohol abuse, uncomplicated; K72.90 Hepatic failure, unspecified without coma; I42.9 Cardiomyopathy, unspecified; I34.0 Nonrheumatic mitral (valve) insufficiency; D69.59 Other secondary thrombocytopenia; F17.200 Nicotine dependence, unspecified, uncomplicated; I16.0 Hypertensive urgency; I25.10 Atherosclerotic heart disease of native coronary artery without angina pectoris; I87.2 Venous insufficiency (chronic) (peripheral); Z79.899 Other long term (current) drug therapy; Z75.1 Person awaiting admission to adequate facility elsewhere
CPT/HCPCS: 36415; 49083; 71010; 71275; 76700; 80048; 80053; 80061; 80074; 80162; 82040; 82105; 82550; 82553; 83036; 83690; 83735; 83880; 84100; 84439; 84443; 84481; 84484; 85025; 85379; 85610; 85730; 87070; 87075; 87205; 89050; 93005; 93010; 93306; 96365; 96366; 96375; 99291; J0282; J1160; J1940; J3490; J7030; J7060; P9047

== ENCOUNTER 2017-02-10 12:15 | Emergency (ER) | payer SELFPAY ==
[2017-02-10] MEDS ORDERED: NORMAL SALINE 1000 ML 500 ML IV PRN (12:41)
[2017-02-10] MEDS ORDERED: FAMOTIDINE INJ/PF 20 MG/2 ML SDV IV ONE (12:41)
[2017-02-10] MEDS ORDERED: ONDANSETRON HCL INJ/PF 4 MG/2 ML SDV IV ONE (12:41)
[2017-02-10] MEDS ORDERED: DILTIAZEM HCL INJ 25 MG/5 ML VIAL IV ONE (12:46)
[2017-02-10] MEDS ORDERED: CALCIUM GLUCONATE 1000 MG/10 ML INJ IV ONE (12:46)
--- NOTE | 2017-02-10 12:52 | ER Document Report ---
ED GI/ - General Chief Complaint: Nausea/Vomiting Stated Complaint: NAUSEA,WEAKNESS Time Seen by Provider: 02/10/17 12:28 TRAVEL OUTSIDE OF THE [place] IN LAST 30 DAYS: No - HPI Patient complains to provider of: Abdominal pain, Vomiting Onset: This morning Timing/Duration: Waxing and waning Quality of pain: Achy, Cramping Severity at maximum: Moderate Severity in ED: Moderate Location: Chest pain, Epigastric Associated symptoms: Chest pain, Lightheaded, Nausea, Shortness of breath Notes: 02/10/17 12:49 Patient is a 56-year-old male with a history of alcoholic cirrhosis, hypertension and atrial fibrillation, who presents to the emergency room today complaining of abdominal pain, chest pain, difficulty breathing, nausea and vomiting, symptoms started shortly before arrival in the emergency department, he was seen and admitted at this hospital in December 2016 for abdominal related complaints, he states he has not had alcohol or tobacco in the last 4 months, was previously a heavy drinker and smoker, he reports he took his medications this morning and has not missed any doses recently - Related Data Allergies/Adverse Reactions: No Known Allergies Allergy (Verified 02/10/17 12:26) Home Medications: Current Home Medications Amiodarone HCl [Cordarone 200 mg Tablet] 200 mg PO DAILY 02/10/17 [History] Apixaban [Eliquis 5 mg Tablet] 5 mg PO BID 02/10/17 [History] Folic Acid 1 mg PO DAILY 02/10/17 [History] Furosemide 80 mg PO BID 02/10/17 [History] Lisinopril [Zestril] 2.5 mg PO DAILY 02/10/17 [History] Potassium Chloride 20 meq PO DAILY 02/10/17 [History] Spironolactone 25 mg PO DAILY 02/10/17 [History] Thiamine HCl [Vitamin B-1] 250 mg PO DAILY 02/10/17 [History] Past Medical History - General Information source: Patient - Social History Smoking Status: Former Smoker Frequency of alcohol use: STOPPED 3 MONTHS AGO Drug Abuse: None Family History: Reviewed & Not Pertinent - Past Medical History Cardiac Medical History: Reports: Hx Atrial Fibrillation, Hx Congestive Heart Failure, Hx Hypercholesterolemia, Hx Hypertension Denies: Hx Coronary Artery Disease, Hx DVT, Hx Heart Attack, Hx Pulmonary Embolism Pulmonary Medical History: Denies: Hx Asthma, Hx COPD, Hx Sleep Apnea Neurological Medical History: Denies: Hx Seizures Endocrine Medical History: Denies: Hx Diabetes Mellitus Type 1, Hx Diabetes Mellitus Type 2, Hx Hyperthyroidism, Hx Hypothyroidism Renal/ Medical History: Denies: Hx Peritoneal Dialysis GI Medical History: Denies: Hx Cirrhosis, Hx Gastroesophageal Reflux Disease, Hx Hepatitis Musculoskeltal Medical History: Reports Hx Arthritis Psychiatric Medical History: Denies: Hx Depression Infectious Medical History: Denies: Hx Hepatitis Surgical Hx: Negative - Immunizations Hx Diphtheria, Pertussis, Tetanus Vaccination: Yes Review of Systems - Review of Systems Constitutional: No symptoms reported EENT: No symptoms reported Cardiovascular: See HPI Respiratory: See HPI Gastrointestinal: See HPI Genitourinary: No symptoms reported Male Genitourinary: No symptoms reported Musculoskeletal: No symptoms reported Skin: No symptoms reported Hematologic/Lymphatic: No symptoms reported Neurological/Psychological: No symptoms reported -: Yes All other systems reviewed and negative Physical Exam - Vital signs Vitals: Temp Resp Pulse Ox 98.3 F 21 H 97 02/10/17 12:22 02/10/17 12:22 02/10/17 12:22 Interpretation: Tachycardic - General General appearance: Alert In distress: None - HEENT Head: Normocephalic, Atraumatic Eyes: Normal Conjunctiva: Normal Extraocular movements intact: Yes Eyelashes: Normal Pupils: PERRL Mucous membranes: Normal - Respiratory Respiratory status: No respiratory distress Chest status: Nontender Breath sounds: Normal Chest palpation: Normal - Cardiovascular Rhythm: Irregularly irregular, Tachycardia Heart sounds: Normal auscultation Murmur: No - Abdominal Inspection: Normal Distension: Distended, Fluid wave Bowel sounds: Normal Tenderness: Tender - Epigastric Organomegaly: Hepatomegaly - Back Back: Normal, Nontender - Extremities General upper extremity: Normal inspection, Nontender, Normal color, Normal ROM , Normal temperature General lower extremity: Nontender, Edema - Bilateral lower extremities, Normal color, Normal temperature. No: Alcira's sign - Neurological Neuro grossly intact: Yes Cognition: Normal Orientation: AAOx4 [place] Coma Scale Eye Opening: Spontaneous [place] Coma Scale Verbal: Oriented [place] Coma Scale Motor: Obeys Commands [place] Coma Scale Total: 15 Speech: Normal Motor strength normal: LUE, RUE, LLE, RLE Sensory: Normal - Psychological Associated symptoms: Normal affect, Normal mood - Skin Skin Temperature: Warm Skin Moisture: Dry Skin Color: Pale Course - Re-evaluation Re-evalutation: 02/10/17 19:00 Patient reports feeling much better, labs and imaging findings were discussed with him at bedside which are relatively within normal limits for this patient, his abdomen is soft and nontender, imaging findings show nothing acute, he is tolerating p.o. intake, plan to discharge patient home with instructions for follow-up, advised to return if any additional concerns, patient and family member at bedside acknowledge understanding and agreement with this plan - Vital Signs Vital signs: Temp Pulse Resp BP Pulse Ox 98.3 F 19 104/91 H 95 02/10/17 12:22 02/10/17 18:40 02/10/17 18:40 02/10/17 18:40 - Laboratory Result Diagrams: 02/10/17 12:23 02/10/17 13:53 Laboratory results interpreted by me: 02/10/17 02/10/17 02/10/17 12:23 12:54 13:53 RBC 4.29 L Hgb 13.2 L RDW 18.0 H VBG pH Sodium 133.8 L Chloride 94 L Glucose 112 H Lactic Acid 3.3 H Total Bilirubin 2.9 H Direct Bilirubin 1.5 H Alkaline Phosphatase 133 H Creatine Kinase 21 L Urine Protein Urine Bilirubin Urine Urobilinogen Urine Ascorbic Acid 02/10/17 02/10/17 02/10/17 13:53 14:09 16:07 RBC Hgb RDW VBG pH 7.46 H Sodium Chloride Glucose Lactic Acid 2.7 H Total Bilirubin Direct Bilirubin Alkaline Phosphatase Creatine Kinase Urine Protein 30 H Urine Bilirubin SMALL H Urine Urobilinogen 4.0 H Urine Ascorbic Acid 40 H - Diagnostic Test Radiology reviewed: Image reviewed, Reports reviewed - EKG Interpretation by Me Rate: Tachycardia Rhythm: A.Fib Discharge - Discharge Clinical Impression: Atrial fibrillation with rapid ventricular response Nausea and vomiting Qualifiers: Vomiting type: unspecified Vomiting Intractability: non-intractable Qualified Code(s): R11.2 - Nausea with vomiting, unspecified Condition: Stable Disposition: HOME, SELF-CARE Instructions: Vomiting ([facility]), Intravenous (IV) Fluids ([facility]), Antinausea Medication ([facility]) Additional Instructions: Follow up with your primary care provider in one to 2 days. Return to the emergency room immediately if symptoms worsen or any additional concerns.
[2017-02-10 12:53] LABS: ABSOLUTE BASOPHILS # (AUTO) 0.1 10^3/uL (0.0-0.2); ABSOLUTE EOSINOPHILS # (AUTO) 0.1 10^3/uL (0.0-0.6); ABSOLUTE LYMPHOCYTES (AUTO) 1.2 10^3/uL (0.5-4.7); ABSOLUTE MONOCYTES (AUTO) 0.7 10^3/uL (0.1-1.4); ABSOLUTE NEUT (AUTO) 5.7 10^3/uL (1.7-8.2); BASOPHILS % (AUTO) 1.2 % (0-2); EOSINOPHILS % (AUTO) 0.9 % (0-6); HEMATOCRIT 39.3 % (37.9-51.0); HEMOGLOBIN 13.2 g/dL (13.5-17.0); HGB HCT DIFFERENCE 0.3; LYMPHOCYTES % (AUTO) 14.9 % (13-45); MEAN CORPUSCULAR HEMOGLOBIN 30.7 pg (27.0-33.4); MEAN CORPUSCULAR HGB CONC 33.5 g/dL (32.0-36.0); MEAN CORPUSCULAR VOLUME 92 fl (80-97); MONOCYTES % (AUTO) 9.5 % (3-13); RED BLOOD COUNT 4.29 10^6/uL (4.35-5.55); SEGMENTED NEUTROPHILS % (AUTO) 73.5 % (42-78); WHITE BLOOD COUNT 7.7 10^3/uL (4.0-10.5)
--- NOTE | 2017-02-10 13:21 | RADIOLOGY REPORT (SQ) ---
EXAM DESCRIPTION: CHEST PA/LAT COMPLETED DATE/TIME: 02/10/2017 1:07 pm REASON FOR STUDY: db COMPARISON: 12/21/2016. NUMBER OF VIEWS: Two views. TECHNIQUE: Frontal and lateral radiographic views of the chest acquired. LIMITATIONS: None. FINDINGS: LUNGS AND PLEURA: Right pleural effusion. Small left pleural effusion. Mild basilar atel ectasis. MEDIASTINUM AND HILAR STRUCTURES: No masses or contour abnormality. HEART AND VASCULAR STRUCTURES: Cardiac enlargement. Vascular congestion. BONES: No acute findings. HARDWARE: None in the chest. OTHER: No other significant finding. IMPRESSION: CARDIAC ENLARGEMENT. VASCULAR CONGESTION. PLEURAL EFFUSIONS WITH MILD BASILAR ATELECTA SIS. TECHNICAL DOCUMENTATION: JOB ID: [id number] [email or web address]- All Rights Reserved
[2017-02-10 14:10] LABS: VENOUS BLOOD BASE EXCESS 0.9 mmol/L; VENOUS BLOOD HCO3 24.3 mmol/L (20-32); VENOUS BLOOD PCO2 35.2 mmHg (35-63); VENOUS BLOOD PH 7.46 (7.30-7.42)
[2017-02-10 14:22] LABS: ALANINE AMINOTRANSFERASE 65 U/L (21-72); ALBUMIN 3.8 g/dL (3.5-5.0); ALKALINE PHOSPHATASE 133 U/L (38-126); ANION GAP 13 (5-19); ASPARTATE AMINO TRANSFERASE 52 U/L (17-59); BILIRUBIN,DIRECT 1.5 mg/dL (0.0-0.4); BILIRUBIN,TOTAL 2.9 mg/dL (0.2-1.3); BLOOD UREA NITROGEN 17 mg/dL (7-20); CALCIUM 9.5 mg/dL (8.4-10.2); CARBON DIOXIDE 27 mmol/L (22-30); CHLORIDE 94 mmol/L (98-107); CREATINE KINASE 21 U/L (55-170); CREATININE RESULT 1.18 mg/dL (0.52-1.25); GLUCOSE 112 mg/dL (75-110); LIPASE 111.9 U/L (23-300); POTASSIUM 4.2 mmol/L (3.6-5.0); SODIUM 133.8 mmol/L (137-145); TOTAL PROTEIN 6.7 g/dL (6.3-8.2)
[2017-02-10 14:28] LABS: AMORPHOUS SEDIMENT,URINE TRACE /HPF; APPEARANCE,URINE CLOUDY; BILIRUBIN,URINE SMALL (NEGATIVE); GLUCOSE, URINE NEGATIVE (NEGATIVE); KETONES,URINE NEGATIVE (NEGATIVE); LEUKOCYTE ESTERASE,URINE NEGATIVE (NEGATIVE); NITRITE,URINE NEGATIVE (NEGATIVE); PROTEIN,URINE 30 mg/dL (NEGATIVE); URINE SPECIFIC GRAVITY 1.023
[2017-02-10 14:33] LABS: CREATINE KINASE MB 0.36 ng/mL (<4.55)
[2017-02-10 14:34] LABS: TROPONIN I < 0.012 ng/mL
--- NOTE | 2017-02-10 15:32 | RADIOLOGY REPORT (SQ) ---
EXAM DESCRIPTION: CT ABD/PELVIS WITH IV ONLY COMPLETED DATE/TIME: 02/10/2017 3:12 pm REASON FOR STUDY: abd pain COMPARISON: None. TECHNIQUE: CT scan of the abdomen and pelvis performed using helical scanning technique with dynamic intravenous contrast injection. No oral contrast. Images reviewed with lung, soft tissue, and bone windows. Reconstructed coronal and sagittal MPR images reviewed. Delayed images for evaluation of the urinary system also acquired. All images stored on PACS. All CT scanners at this facility use dose modulation, iterative reconstruction, and/or weight based d osing when appropriate to reduce radiation dose to as low as reasonably achievable (ALARA). [facility]: Dose Right [facility]: CareDose [facility]: Dose Right [facility]: Teradose 4D [facility]: Roobiq CONTRAST TYPE AND DOSE: contrast/concentration: Isovue 370.00 mg/ml; Total Contrast Delivered: 83.0 ml; Total Saline Delivered: 68.0 ml RENAL FUNCTION: BUN 17 creatinine 1.18. RADIATION DOSE: Up-to-date CT equipment and radiation dose reduction techniques were employed. CTDIv ol: 9.7 - 13.6 mGy. DLP: 1254 mGy-cm.. LIMITATIONS: None. FINDINGS: LOWER CHEST: Basilar atelectasis with bilateral pleural effusions, right greater than left . LIVER: Hepatomegaly. Liver measures 20 cm in length and 23 cm in maximum transverse dimension. Mild ly heterogenous. No masses. No dilated ducts. SPLEEN: Normal size. No focal lesions. PANCREAS: No masses. No significant calcifications. No adjacent inflammation or peripancreatic fluid collections. Pancreatic duct not dilated. GALLBLADDER: Mild increased attenuation of the gallbladder contents. No inflammatory changes to sugge st cholecystitis. ADRENAL GLANDS: No significant masses or asymmetry. RIGHT KIDNEY AND URETER: No solid masses. No significant calcifications. No hydronephrosis or hyd roureter. LEFT KIDNEY AND URETER: Cortical cysts. No solid masses. No significant calcifications. No hydro nephrosis or hydroureter. AORTA AND VESSELS: No aneurysm. No dissection. Renal arteries, SMA, celiac without stenosis. RETROPERITONEUM: No retroperitoneal adenopathy, hemorrhage or masses. BOWEL AND PERITONEAL CAVITY: No masses or inflammatory changes. Moderate ascites. APPENDIX: Normal. PELVIS: No mass. No free fluid. Normal bladder. ABDOMINAL WALL: No masses. No hernias. BONES: No significant or acute findings. OTHER: No other significant finding. IMPRESSION: 1. MARKED HEPATOMEGALY. MODERATE ASCITES. 2. INCREASED ATTENUATION OF THE GALLBLADDER CONTENTS, POSSIBLY SLUDGE OR THICKENED BILE. 3. CORTICAL CYSTS IN THE LEFT KIDNEY. 4. BASILAR ATELECTASIS WITH BILATERAL PLEURAL EFFUSIONS, RIGHT GREATER THAN LEFT. TECHNICAL DOCUMENTATION: JOB ID: [id number] Quality ID # [id number]: Final reports with documentation of one or more dose reduction techniques (e.g., Au tomated exposure control, adjustment of the mA and/or kV according to patient size, use of iterative reconstruction technique) 2010 [employer]- All Rights Reserved
[2017-02-10] MEDS ORDERED: NORMAL SALINE 1000 ML 1,000 ML IV PRN (16:13)
--- NOTE | 2017-02-10 18:53 | RADIOLOGY REPORT (SQ) ---
EXAM DESCRIPTION: U/S ABDOMEN LIMITED W/O DOP COMPLETED DATE/TIME: 02/10/2017 6:27 pm REASON FOR STUDY: vomiting COMPARISON: CT from 02/10/2017 in ultrasound from 12/23/2016 TECHNIQUE: Dynamic and static grayscale images acquired of the abdomen and recorded on PACS. Additio nal selected color Doppler and spectral images recorded. LIMITATIONS: None. FINDINGS: PANCREAS: No masses. Visualized pancreatic duct normal caliber. LIVER: Enlarged. No masses. Echotexture normal. LIVER VASCULATURE: Patent. GALLBLADDER: No stones. Normal wall thickness. No pericholecystic fluid. ULTRASOUND-DETECTED KNUTSON'S SIGN: Negative. INTRAHEPATIC DUCTS AND COMMON DUCT: CBD and intrahepatic ducts normal caliber. No filling defects. INFERIOR VENA CAVA: Normal flow. AORTA: No aneurysm. RIGHT KIDNEY: Normal size. Normal echogenicity. No solid or suspicious masses. No hydronephrosis. No calcifications. PERITONEAL AND RIGHT PLEURAL SPACE: Stable ascites and right pleural effusion. OTHER: No other significant findings. IMPRESSION: Stable ascites and right pleural effusion. Hepatomegaly. No additional acute or significant findings. TECHNICAL DOCUMENTATION: JOB ID: [id number] [employer]- All Rights Reserved
[2017-02-10] MEDS ORDERED: ONDANSETRON 4 MG TAB.RAPDIS SL ONE (19:00)
[2017-02-10] MEDS ORDERED: ONDANSETRON ODT 4 MG TAB (6 TAB/DSPK) PO PRN (19:02)
[2017-02-10 19:22] VITALS: BP 115/86
--- NOTE | 2017-02-11 13:41 | EKG REPORT ---
SEVERITY:- ABNORMAL ECG - ATRIAL FIBRILLATION NONSPECIFIC INTRAVENTRICULAR CONDUCTION DELAY ANTERIOR INFARCT, ACUTE VS LBBB RELATED : Confirmed by: Alan Ayala 11-Feb-2017 13:40:25
== END 2017-02-10 19:25 | disposition home or self-care (01) ==
LOC: ER 12:15
DX: R11.2 Nausea with vomiting, unspecified (principal); I48.91 Unspecified atrial fibrillation; I10 Essential (primary) hypertension; R42 Dizziness and giddiness; R07.9 Chest pain, unspecified; R06.02 Shortness of breath; R60.0 Localized edema; R14.0 Abdominal distension (gaseous); R10.816 Epigastric abdominal tenderness; R00.0 Tachycardia, unspecified; Z87.891 Personal history of nicotine dependence; Z87.19 Personal history of other diseases of the digestive system
CPT/HCPCS: 93005; 99285; 96361; 96375; 96365; 36415; 87086; 82553; 82550; 83690; 85025; 80053; 81001; 84484; 82803; 83605; 71020; 76705; 74177; 93010; J0610; J3490; J2405; J7030; S0028

== ENCOUNTER 2017-02-11 12:52 | Emergency (ER) | payer SELFPAY ==
--- NOTE | 2017-02-11 13:10 | ER Document Report ---
ED Medical Screen (RME) - General Stated Complaint: STOMACH PAIN Time Seen by Provider: 02/11/17 13:07 Mode of Arrival: Wheelchair Information source: Patient TRAVEL OUTSIDE OF THE [place] IN LAST 30 DAYS: No - HPI Patient complains to provider of: Abdominal pain with distention and fullness from ascites Notes: 02/11/17 13:09 Patient is a 56-year-old male with multiple medical problems including atrial fibrillation, liver disease with ascites, with previous paracentesis 1, presents to the emergency room today complaining of worsening abdominal distention with pain and fullness, as well as nausea, he was seen by this clinician in this department yesterday and his abdomen was soft with moderate ascites, today his abdomen is much more firm with worsening ascites and symptoms - Related Data Allergies/Adverse Reactions: No Known Allergies Allergy (Verified 02/10/17 12:26) Past Medical History - Past Medical History Cardiac Medical History: Reports: Hx Atrial Fibrillation, Hx Congestive Heart Failure, Hx Hypercholesterolemia, Hx Hypertension Denies: Hx Coronary Artery Disease, Hx DVT, Hx Heart Attack, Hx Pulmonary Embolism Pulmonary Medical History: Denies: Hx Asthma, Hx COPD, Hx Sleep Apnea Neurological Medical History: Denies: Hx Seizures Endocrine Medical History: Denies: Hx Diabetes Mellitus Type 1, Hx Diabetes Mellitus Type 2, Hx Hyperthyroidism, Hx Hypothyroidism Renal/ Medical History: Denies: Hx Peritoneal Dialysis GI Medical History: Denies: Hx Cirrhosis, Hx Gastroesophageal Reflux Disease, Hx Hepatitis Musculoskeltal Medical History: Reports Hx Arthritis Psychiatric Medical History: Denies: Hx Depression Infectious Medical History: Denies: Hx Hepatitis - Immunizations Hx Diphtheria, Pertussis, Tetanus Vaccination: Yes
[2017-02-11 14:12] LABS: ABSOLUTE BASOPHILS # (AUTO) 0.1 10^3/uL (0.0-0.2); ABSOLUTE LYMPHOCYTES (AUTO) 0.9 10^3/uL (0.5-4.7); ABSOLUTE MONOCYTES (AUTO) 0.7 10^3/uL (0.1-1.4); ABSOLUTE NEUT (AUTO) 5.9 10^3/uL (1.7-8.2); BASOPHILS % (AUTO) 0.7 % (0-2); EOSINOPHILS % (AUTO) 0.4 % (0-6); HEMATOCRIT 38.3 % (37.9-51.0); HEMOGLOBIN 13.1 g/dL (13.5-17.0); LYMPHOCYTES % (AUTO) 11.9 % (13-45); MEAN CORPUSCULAR HEMOGLOBIN 31.3 pg (27.0-33.4); MEAN CORPUSCULAR HGB CONC 34.1 g/dL (32.0-36.0); MEAN CORPUSCULAR VOLUME 92 fl (80-97); MONOCYTES % (AUTO) 9.6 % (3-13); RED BLOOD COUNT 4.17 10^6/uL (4.35-5.55); RED CELL DISTRIBUTION WIDTH 18.4 % (11.5-14.0); SEGMENTED NEUTROPHILS % (AUTO) 77.4 % (42-78); WHITE BLOOD COUNT 7.6 10^3/uL (4.0-10.5)
[2017-02-11] MEDS ORDERED: LIDOCAINE 1% INJ (10 MG/ML) 10 ML MDV INJ ONE (14:26)
--- NOTE | 2017-02-11 14:30 | ER Document Report ---
ED GI/ - General Mode of Arrival: Wheelchair Information source: Patient TRAVEL OUTSIDE OF THE [place] IN LAST 30 DAYS: No - HPI Patient complains to provider of: Abdominal pain, Vomiting Onset: Yesterday - last night Similar symptoms previously: Yes - last night Recently seen / treated by doctor: Yes - [facility] 02/10/2017 <DEBI ALVARADO - Last Filed: 02/11/17 23:07> <KIN LOCKWOOD - Last Filed: 02/11/17 23:19> - General Chief Complaint: Abdominal Distention Stated Complaint: STOMACH PAIN Time Seen by Provider: 02/11/17 13:07 Notes: Patient is a 56 year old male presenting to the emergency department for abdominal pain and abdominal distension. Patient's symptoms were onset last night and worsened today. Patient also complains of pressure in his chest, vomiting, nausea, lack of appetite and poor fluid intake; these symptoms are all related to the patients increased pressure from his distended abdomen. Patient was seen in the ED last night for similar symptoms and was discharged home. Patient states his symptoms worsened today and his abdomen is more distended. Patient has a history of alcoholic cirrhosis and had a previous paracentesis about 2-3 months ago. Patient has not had any alcohol for about 4 months now. Patient denies fever, chills, diarrhea, or testicular swelling. Patient's PCP is Dr. 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 (DEBI ALVARADO) - Related Data Allergies/Adverse Reactions: No Known Allergies Allergy (Verified 02/11/17 13:18) Past Medical History - General Information source: Patient - Social History Smoking Status: Former Smoker Cigarette use (# per day): No Chew tobacco use (# tins/day): No Smoking Education Provided: No Frequency of alcohol use: None Drug Abuse: None Family History: None Patient has suicidal ideation: No Patient has homicidal ideation: No - Past Medical History Cardiac Medical History: Reports: Hx Atrial Fibrillation, Hx Congestive Heart Failure, Hx Hypercholesterolemia, Hx Hypertension GI Medical History: Reports: Hx Cirrhosis - EtOH Musculoskeltal Medical History: Reports Hx Arthritis Surgical Hx: Negative - Immunizations Hx Diphtheria, Pertussis, Tetanus Vaccination: Yes <DEBI ALVARADO - Last Filed: 02/11/17 23:07> Review of Systems - Review of Systems Constitutional: See HPI, Malaise. denies: Chills, Fever EENT: No symptoms reported Cardiovascular: See HPI, Chest pain Respiratory: No symptoms reported Gastrointestinal: See HPI, Abdomen distended, Abdominal pain, Nausea, Vomiting, Poor appetite, Poor fluid intake. denies: Diarrhea Male Genitourinary: No symptoms reported. denies: Other Musculoskeletal: See HPI, Leg swelling Skin: No symptoms reported Hematologic/Lymphatic: No symptoms reported Neurological/Psychological: No symptoms reported -: Yes All other systems reviewed and negative <JENNYDEBI - Last Filed: 02/11/17 23:07> Physical Exam - Vital signs Interpretation: Normal <LUDMILAROMAINEGENODEBI - Last Filed: 02/11/17 23:07> <KIN LOCKWOOD - Last Filed: 02/11/17 23:19> - Vital signs Vitals: Temp Pulse Resp BP Pulse Ox 97.6 F 92 20 125/78 100 02/11/17 13:09 02/11/17 13:09 02/11/17 13:09 02/11/17 13:09 02/11/17 13:09 - Notes Notes: GENERAL: Alert, interacts well, appears uncomfortable. Mild distress. HEAD: Normocephalic, atraumatic, spider veins across face. EYES: Pupils equal, round, and reactive to light. Extraocular movements intact. ENT: Oral mucosa moist, tongue midline. NECK: Full range of motion. Supple. Trachea midline. LUNGS: Clear to auscultation bilaterally, no wheezes, rales, or rhonchi. No respiratory distress. HEART: Regular rate and rhythm. No murmurs, gallops, or rubs. ABDOMEN: Distended. Diffusely tender to palpation. Trace pitting edema to the abdomen, abdomen is tight enough where there is no fluid wave. Bowel sounds present in all 4 quadrants. No caput medusa. EXTREMITIES: Moves all 4 extremities spontaneously. 3+ pitting edema below the knee bilaterally, 1+ pitting edema extending above the knees bilaterally. Dorsalis pedis pulses 2/4 bilaterally. No cyanosis. NEUROLOGICAL: Alert and oriented x3. Normal speech. PSYCH: Normal affect, normal mood. SKIN: Warm, dry. No rashes or lesions noted. (DEBI ALVARADO) Course - Laboratory Result Diagrams: 02/11/17 13:10 02/11/17 13:55 <DEBI ALVARADO - Last Filed: 02/11/17 23:07> - Laboratory Result Diagrams: 02/11/17 13:10 02/11/17 13:55 <KIN LOCKWOOD - Last Filed: 02/11/17 23:19> - Re-evaluation Re-evalutation: 02/11/17 17:54 CBC grossly unremarkable, INR is prolonged consistent with cirrhosis, total and direct bilirubin are both elevated also consistent with cirrhosis, no right upper quadrant tenderness palpation, negative ultrasound yesterday, doubt gallbladder disease, AST and ALT are both slightly elevated, alkaline phosphatase normal, urinalysis shows some protein and glucose, no evidence of infection, paracentesis was performed ultrasound-guided by myself at the bedside , approximately 2200 mL's of clear yellow fluid was obtained, viscosity was normal, 125 WBCs points away from spontaneous bacterial peritonitis. It has been sent for culture just in case. Now that the patient has had over 2 L of peritoneal fluid drained which he tolerated well he is feeling much better, he was given a liter of normal saline , blood pressure is normalized, he continues to have intermittent tachycardia however he feels much better, is able to eat and drink, abdomen is now soft and nontender. At this time patient will be discharged home, asked to return for any additional abdominal pain, rapidly expanding abdomen or any new or concerning symptoms. I did speak with the hospitalist [employer] consultant for advice regarding further management of this patient, recommend starting the patient on either Xifaxan or ciprofloxacin prophylactically to prevent spontaneous bacterial peritonitis in the future. 02/11/17 23:18 (KIN LOCKWOOD) - Vital Signs Vital signs: Temp Pulse Resp BP Pulse Ox 97.6 F 100 18 109/90 H 93 02/11/17 13:10 02/11/17 13:10 02/11/17 18:01 02/11/17 18:01 02/11/17 16:34 - Laboratory Laboratory results interpreted by me: 02/11/17 02/11/17 02/11/17 13:10 13:55 13:55 RBC 4.17 L Hgb 13.1 L RDW 18.4 H Lymphocytes % 11.9 L PT 25.7 H Sodium 135.9 L Chloride 95 L Total Bilirubin 2.8 H Direct Bilirubin 1.5 H AST 82 H ALT 83 H Urine Protein Urine Glucose (UA) Urine Urobilinogen Urine Ascorbic Acid 02/11/17 14:40 RBC Hgb RDW Lymphocytes % PT Sodium Chloride Total Bilirubin Direct Bilirubin AST ALT Urine Protein 100 H Urine Glucose (UA) 50 H Urine Urobilinogen 4.0 H Urine Ascorbic Acid 40 H Procedures - Paracentesis RLQ Time completed: 16:32 Consent obtained: Yes Paracentesis pre-procedure: Sterile PPE donned, Chloraprep applied, Sterile drapes applied Needle size: 20 Paracentesis location: RLQ Anesthetic type: 1% Lidocaine mL's of anesthetic: 10 Amount/type of drainage: 2200 mL-clear, yellow drainage Number of attempts: 1 Ultrasound guided: Yes Complications: No <DEBI ALVARADO - Last Filed: 02/11/17 23:07> Discharge <DEBI ALVARADO - Last Filed: 02/11/17 23:07> <KIN LOCKWOOD - Last Filed: 02/11/17 23:19> - Discharge Clinical Impression: Ascites due to alcoholic cirrhosis Condition: Stable Disposition: HOME, SELF-CARE Additional Instructions: Today there is no sign of infection in your belly. We drained off approximately 2 L of fluid. I have started you on an antibiotic called Xifaxan to help prevent an infection from forming in your belly. You may wish to speak with Dr. Macedo regarding scheduling a regular appointment to have the fluid drained off of your belly. This can be done through radiology as an outpatient to have an ultrasound-guided paracentesis happen as often as needed, you could have it as rarely is once a month or as often as once a week. You will have to go through Dr. Macedo to arrange this. Please return for increasing pain, increasing size of the abdomen, inability to eat or drink, fevers or any new or concerning symptoms. Prescriptions: Rifaximin [Xifaxan 550 Mg Tablet] 550 mg PO BID #30 tablet Referrals: LIZBET HUFFMAN MD [COMMUNITY BASED STAFF] - Follow up as needed Scribe Attestation: 02/11/17 23:19 I personally performed the services described in the documentation, reviewed and edited the documentation which was dictated to the scribe in my presence, and it accurately records my words and actions. (KIN LOCKWOOD) Scribe Documentation - Scribe Written by Scribe:: Tati Ribeiro 02/11/2017 14:34 acting as scribe for :: Ry <DEBI ALVARADO - Last Filed: 02/11/17 23:07>
[2017-02-11 14:53] LABS: ALANINE AMINOTRANSFERASE 83 U/L (21-72); ALBUMIN 3.7 g/dL (3.5-5.0); ALKALINE PHOSPHATASE 123 U/L (38-126); ANION GAP 16 (5-19); ASPARTATE AMINO TRANSFERASE 82 U/L (17-59); BILIRUBIN,DIRECT 1.5 mg/dL (0.0-0.4); BILIRUBIN,TOTAL 2.8 mg/dL (0.2-1.3); BLOOD UREA NITROGEN 18 mg/dL (7-20); CALCIUM 9.7 mg/dL (8.4-10.2); CARBON DIOXIDE 25 mmol/L (22-30); CHLORIDE 95 mmol/L (98-107); CREATININE RESULT 1.08 mg/dL (0.52-1.25); GLUCOSE 109 mg/dL (75-110); LIPASE 82.3 U/L (23-300); POTASSIUM 4.4 mmol/L (3.6-5.0); SODIUM 135.9 mmol/L (137-145); TOTAL PROTEIN 6.5 g/dL (6.3-8.2)
[2017-02-11 14:57] LABS: PROTHROMBIN TIME 25.7 SEC (11.4-15.4)
[2017-02-11] MEDS ORDERED: NORMAL SALINE 1000 ML 1,000 ML IV ONE (15:36)
[2017-02-11 16:34] LABS: FLUID APPEARANCE HAZY; FLUID RBC SIDE 1 122; FLUID TYPE PERITONEAL
[2017-02-11 16:35] LABS: FLUID RBC DILUENT USED NONE USED; FLUID RBC DILUTION FACTOR 1; FLUID RBC SIDE 2 130; TOTAL RBC SQUARES COUNTED FLD 75
[2017-02-11 16:38] LABS: APPEARANCE,URINE TURBID; BILIRUBIN,URINE NEGATIVE (NEGATIVE); GLUCOSE, URINE 50 mg/dL (NEGATIVE); KETONES,URINE NEGATIVE (NEGATIVE); LEUKOCYTE ESTERASE,URINE NEGATIVE (NEGATIVE); NITRITE,URINE NEGATIVE (NEGATIVE); PROTEIN,URINE 100 mg/dL (NEGATIVE); URINE SPECIFIC GRAVITY 1.041
[2017-02-11 18:24] VITALS: BP 109/90
== END 2017-02-11 18:25 | disposition home or self-care (01) ==
LOC: ER 12:52
PROC: 0W9G3ZZ Drainage of Peritoneal Cavity, Percutaneous Approach (ICD-10-PCS; principal; 2017-02-11)
DX: K70.31 Alcoholic cirrhosis of liver with ascites (principal); R14.0 Abdominal distension (gaseous); R10.9 Unspecified abdominal pain; R07.9 Chest pain, unspecified; R11.2 Nausea with vomiting, unspecified; R63.0 Anorexia; Z87.891 Personal history of nicotine dependence
CPT/HCPCS: 99284; 96360; 36415; 87205; 87070; 83690; 85025; 85610; 89050; 87075; 80053; 81001; 49083; J7030